=== PATIENT | female | born 1965 | race Caucasian/White ===

== ENCOUNTER → 2017-07-29 | Outpatient (CLI) | payer BC ==
[2017-07-29 12:38] LABS: REASON FOR REVIEW WBC/LEUKEMIA/BLAST; SLIDE REVIEW Report; SOURCE PERIPHERAL SMEAR
[2017-07-29 12:50] LABS: HEPATITIS B SURFACE ANTIBODY NEGATIVE (POSITIVE); VITAMIN B12 LEVEL 335 PG/ML (247-911)
[2017-07-29 12:58] LABS: FERRITIN 60 NG/ML (8-252); IRON (FE) 86 UG/DL (50-170); PERCENT SATURATION 20.1 % (13.2-45.0); TOTAL IRON BINDING CAPACITY 427 UG/DL (250-450); TOTAL PROTEIN 7.4 GM/DL (6.4-8.2)
[2017-07-29 13:00] LABS: HEPATITIS B SURFACE ANTIGEN NEGATIVE (NEGATIVE)
[2017-07-29 13:18] LABS: ERYTHROCYTE SEDIMENTATION RATE 8 mm/hr (0-30)
[2017-07-30 11:13] LABS: ALBUMIN 4.57 GM/DL (3.29-5.55); ALBUMIN % 61.7 % (55.8-66.1); ALPHA-1-GLOBULIN % 3.8 % (2.9-4.9); ALPHA-1-GLOBULINS 0.28 GM/DL (0.17-0.41); ALPHA-2-GLOBULINS 0.81 GM/DL (0.42-0.99); ALPHA-2-GLOBULINS % 10.9 % (7.1-11.8); BETA-1-GLOBULINS % 6.8 % (4.7-7.2); BETA-2-GLOBULINS % 4.9 % (3.2-6.5); GAMMA GLOBULIN % 11.9 % (11.1-18.8)
[2017-07-30 11:14] LABS: BETA-2-GLOBULINS 0.36 GM/DL (0.19-0.55); GAMMA GLOBULINS 0.88 GM/DL (0.65-1.58)
[2017-07-31 00:06] LABS: FREE KAPPA LIGHT CHAINS SERUM 16.9 mg/L (3.3-19.4); FREE LAMBDA LIGHT CHAINS SERUM 9.9 mg/L (5.7-26.3); KAPPA/LAMBDA RATIO SERUM 1.71 (0.26-1.65)
== END ==
LOC: M RAD 07:22
DX: D64.9 Anemia, unspecified (principal); D72.819 Decreased white blood cell count, unspecified; K80.00 Calculus of gallbladder with acute cholecystitis without obstruction; R16.1 Splenomegaly, not elsewhere classified
CPT/HCPCS: 76700

== ENCOUNTER 2017-08-09 07:01 | Day surgery (SDC) | payer BC ==
[2017-08-09] MEDS ORDERED: LIDOCAINE 2% INJ 100 MG/5 ML SDV (FOR ANES.) As Ordered (07:03)
[2017-08-09] MEDS ORDERED: PROPOFOL 200 MG/20 ML VIAL As Ordered ×2 (07:03)
[2017-08-09] MEDS ORDERED: fentaNYL 100 MCG/2 ML INJECTION (J3010) As Ordered (07:34)
[2017-08-09] MEDS: NS 1,000 ML IV (07:45)
[2017-08-09] MEDS ORDERED: hydrALAZINE INJ 20 MG/ML VIAL As Ordered ×2 (07:55)
== END 2017-08-09 08:53 | disposition home or self-care (01) ==
LOC: M OPP 07:01
DX: D50.9 Iron deficiency anemia, unspecified (principal); Z80.0 Family history of malignant neoplasm of digestive organs; D12.5 Benign neoplasm of sigmoid colon; K64.8 Other hemorrhoids; K22.8 Other specified diseases of esophagus; K21.0 Gastro-esophageal reflux disease with esophagitis; I89.0 Lymphedema, not elsewhere classified; Z98.84 Bariatric surgery status; R12 Heartburn; M19.90 Unspecified osteoarthritis, unspecified site; F32.9 Major depressive disorder, single episode, unspecified; Z78.0 Asymptomatic menopausal state; G47.30 Sleep apnea, unspecified; R06.83 Snoring; Z87.891 Personal history of nicotine dependence; Z79.899 Other long term (current) drug therapy; Z80.1 Family history of malignant neoplasm of trachea, bronchus and lung
CPT/HCPCS: 45385

== ENCOUNTER → 2020-05-23 | Outpatient (CLI) | payer BC ==
[~2020-05-23] MED LIST: AMOX875T2 PO; CITA20TA6 PO; LISI-538 PO; PROTPAK PO; VITA-243 PO; iron PO
--- NOTE | 2020-05-23 08:20 | REP ---
INDICATION: CHRONIC CHOLECYSTITIS. COMPARISON: Comparison sonography July 29, 2017.. TECHNIQUE: Coronal and axial T2 weighted scans are acquired. An MRCP acquisition is acquired and maximum intensity projection images are generated. Source coronal images are reviewed. FINDINGS: There are small somewhat nodular shaped filling defect in the dependent portion of the gallbladder consistent with cholelithiasis. No intrahepatic or extrahepatic biliary ductal dilation is seen. There is no evidence of choledocholithiasis. Pancreatic duct is not dilated. There is a moderate size hiatal hernia noted. No focal hepatic lesion or splenic lesion is appreciated. Study is otherwise unremarkable. IMPRESSION: Cholelithiasis. No evidence of choledocholithiasis or biliary or pancreatic ductal abnormality. <Electronically signed by Vincent Navarro > 05/23/20 [id number]
== END ==
LOC: M RAD 06:32
PROVIDERS: ATTEND Surgery
DX: K81.1 Chronic cholecystitis (principal)

== ENCOUNTER → 2020-08-10 | Outpatient (CLI) | payer BC ==
[~2020-08-10] MED LIST changes: +CHLO125TA PO; -LISI-538 PO; +LISI20TA33 PO; +SPIR-10 PO
== END ==
LOC: M LABSMTC 10:21
PROVIDERS: ATTEND Anesthesiology
DX: Z01.812 Encounter for preprocedural laboratory examination (principal); Z20.822 Contact with and (suspected) exposure to COVID-19

== ENCOUNTER 2020-08-15 11:44 | Day surgery (SDC) | payer BC ==
[~2020-08-15] VITALS: Ht 167.6 cm; Wt 102.5 kg
[~2020-08-15 11:44] MED LIST changes: +LIDOCAINE 2% 100MG/5ML SDV (FOR ANES.) As Ordered ONE; +NS 1,000 ML IV ONE; +fentaNYL 100 MCG/2 ML INJECTION (J3010) As Ordered ONE; +propofoL 200 MG/20 ML VIAL As Ordered ONE
--- OUTSIDE RECORDS SUMMARY | 2020-08-15 11:50 | CCD | Continuity of Care Document ---
Author Author Julissa CHINO M.D. Organization Unknown Address [facility] [address] [place] [address] Phone [phone] Care Team Providers Care Enterprise Sales Person Name Role Phone Serenity Morales AUTM [phone] Bandar Diaz AUTM [phone] Problems Active Problems Provider Date Essential hypertension Bandar Diaz MD Onset: 05/06/2020 Chronic cholecystitis Bandar Diaz MD Onset: 05/10/2020 Abdominal pain Bandar Diaz MD Onset: 05/10/2020 Social History Type Date Description Comments Sex Unknown Tobacco Use Start: Unknown End: Unknown Quit Tobacco Use Start: Unknown Never Smoked Cigars Tobacco Use Start: Unknown Never Smoked A Pipe Tobacco Use Start: Unknown Never Used Smokeless Tobacco ETOH Use Occasionally consumes alcohol Tobacco Use Start: Unknown End: Unknown Patient is a former smoker Recreational Drug Use Denies Drug Use Allergies, Adverse Reactions, Alerts Active Allergies Reaction Severity Comments Date NKDA 08/30/2019 NKFA 06/02/2020 NKEA 06/02/2020 Medications Active Medications SIG Qnty Indications Ordering Provide r Date Cytotec 200mcg Tablets 1 tabs intravaginally every 12 hours x 2days 4tabs Blaine Parikh M.D. 06/02/2020 Pantoprazole Sodium 40mg Tablets D R 1 by mouth every day 90tabs Elier Stahl MD 08/30/2019 Lisinopril 20mg Tablets 1 by mouth every day 30tabs Elier Stahl MD 08/30/2019 Spironolactone/Hydrochlorothiazide 25-25mg Tablets take 1/2 tablet by mouth daily written by dr hubbard 45tabs Elier Stahl MD 08/30/2019 Citalopram Hydrobromide 20mg Table ts Take 2 Tablets (40MG) By Mouth Once Daily Unknown Immunizations Description No Information Available Vital Signs Date Vital Result Comment 06/15/2020 8:12am BP Systolic 133 mmHg BP Diastolic 77 mmHg Heart Rate 47 /min Body Temperature 97.3 F Respiratory Rate 19 /min O2 % BldC Oximetry 99 % Weight 226.00 lb Weight 102.514 kg Height 66 inches 5'6" BMI (Body Mass Index) 36.5 kg/m2 BSA (Body Surface Area) 2.11 m2 06/02/2020 3:04pm BP Systolic 117 mmHg BP Diastolic 65 mmHg Heart Rate 50 /min Body Temperature 97.3 F Weight 228.00 lb Weight 103.421 kg Height 66 inches 5'6" BMI (Body Mass Index) 36.8 kg/m2 BSA (Body Surface Area) 2.11 m2 Results Test Acquired Date Facility Test Result H/L Range Note Inhouse Ua 06/15/2020 In Office [facility] Color yellow Ua Appearance clear Spec [place] 1.010 Ua PH Test Strip 5 Leukocytes + Ua Nitrate neg Ua Protein trace Inhouse Glucose neg Ua Ketones neg Urobilinogen neg Ua Bilirubin neg Blood neg Xray 06/15/2020 [facility] [phone] US Renal/Urinary Bladder <pending> Xray 05/18/2020 [facility] [address] [place] [address] [phone] Pelvic <pending> Procedures Description No Information Available Medical Devices Description No Information Available Encounters Type Date Location Provider Dx Diagnosis Office Visit 06/15/2020 8:15a [facility] Dayron Chino M.D. N81.10 Cystocele, unspecified N32.89 Other specified disorders of bladder R35.0 Frequency of micturition R32 Unspecified urinary incontin ence I49.9 Cardiac arrhythmia, unspecif ied Assessments Date Code Description Provider 06/15/2020 N81.10 Cystocele, unspecified Dayron Chino M.D. 06/15/2020 N32.89 Other specified disorders of fredy dder Dayron Chino M.D. 06/15/2020 R35.0 Frequency of micturition aDyron Chino M.D. 06/15/2020 R32 Unspecified urinary incontinence Dayron Chino M.D. 06/15/2020 I49.9 Cardiac arrhythmia, unspecified Dayron Chino M.D. 06/02/2020 Z71.9 Counseling, unspecified [place] Barbara Parikh M.D. 05/10/2020 K81.1 Chronic cholecystitis Bandar valle MD 05/10/2020 R10.30 Lower abdominal pain, unspecifie d Bandar Diaz MD Plan of Treatment 06/15/2020 - Dayron Chino M.D.* N81.10 Cystocele, unspecified* Comments:* Patient presents to the clinic today for evaluation and management of thickening of bladder wall and abnormal CT scan.Physical examination done in the office revealed obese female with irregular heartbeat and grade III cystocele, otherwise unremarkable from a standpoint. Urinalysis completed in the office was positive for leukocyte esterase + and trace protein. Result was reviewed with the patient. CT of the abdomen and pelvis on 05/02/20 revealed cholelithiasis, mild common bile duct dilatation, 2.1-cm uterine fibroid likely an ovarian cyst. Circumferential thickening of the bladder wall may be due to under distention or cystitis in the appropriate clinical setting. Result was reviewed with the patient. Anatomy and functions of female genitourinary system were reviewed with the patient.Pathophysiology of bladder wall thickening was reviewed with the patient at length.Various treatment modalities and workup methods including renal and urinary bladder ultrasound, cystoscopy, and cystocele repair were discussed with the patient at length.Patient was advised to follow up with his primary care physician for irregular heartbeat.In terms of grade III cystocele, we discussed the pros and cons of cystocele repair and elective cystocele repair procedure. Pre and post procedure guidelines were explained to the patient. We will do renal and urinary bladder ultrasound to evaluate bilateral kidneys. Patient verbalized understanding and agreed to the care plan. All of her questions were answered. Patient verbalized understanding and agreed to the care plan. All of her questions were answered. Patient will call us in a few days after considering each of her options to let us know what she has decided. * N32.89 Other specified disorders of bladder* Comments:* In terms of bladder wall thickening, we are going to get renal and urinary bladder ultrasound for further review. If bladder wall thickening is persistent, we will consider cystoscopy to fully evaluate the lower urinary tract and rule out any urethral and/or bladder pathology. * R35.0 Frequency of micturition * R32 Unspecified urinary incontinence * I49.9 Cardiac arrhythmia, unspecified Functional Status Description No Information Available Mental Status Description No Information Available Referrals Refer to Reason for Referral Status Appt Date Bandar Diaz MD Abnormal CT Scan, Thickening of Bladderwall C reated [address] [place] [id number] [phone] Bandar Diaz MD Abnormal Ct scan 5cm cyst 2 cm Fibroid Create d [address] [place] [phone]
--- OUTSIDE RECORDS SUMMARY | 2020-08-15 11:50 | CCD | Continuity of Care Document ---
Author Author Julissa ARREODNDO M.D. Organization Unknown Address [address] [place] [address] Phone [phone] Care Team Providers Care Consumer Education Specialist Name Role Phone Serenity Morales AUTM [phone] Bandar Diaz AUTM [phone] Problems Active Problems Provider Date Essential hypertension [...] SIG Qnty Indications Ordering Provide r Date Pantoprazole Sodium 40mg Tablets D R 1 by mouth every day 90tabs Elier Stahl MD 08/30/2019 Lisinopril 20mg Tablets 1 by mouth every day 30tabs Elier Stahl MD 08/30/2019 Spironolactone/Hydrochlorothiazide 25-25mg Tablets take 1/2 tablet by mouth daily written by dr hubbard 45tabs Elier Stahl MD 08/30/2019 Citalopram Hydrobromide 20mg Table ts Take 2 Tablets (40MG) By Mouth Once Daily Unknown History Medications Cytotec 200mcg Tablets 1 tabs intravaginally every 12 hours x 2days 4tabs Blaine Arredondo M.D. 06/02/2020 - 08/04/2020 Immunizations Description No Information Available Vital Signs Date Vital Result Comment 08/04/2020 2:20pm BP Systolic 139 mmHg BP Diastolic 71 mmHg Heart Rate 51 /min Body Temperature 97.8 F Weight 222.00 lb Weight 100.699 kg Height 66 inches 5'6" BMI (Body Mass Index) 35.8 kg/m2 BSA (Body Surface Area) 2.09 m2 06/15/2020 8:12am BP Systolic 133 mmHg BP Diastolic 77 mmHg Heart Rate 47 /min Body Temperature 97.3 F Respiratory Rate 19 /min O2 % BldC Oximetry 99 % Weight 226.00 lb Weight 102.514 kg Height 66 inches 5'6" BMI (Body Mass Index) 36.5 kg/m2 BSA (Body Surface Area) 2.11 m2 Results Test Acquired Date Facility Test Result H/L Range Note Laboratory test finding 08/04/2020 In Office Inhouse Urine Test NEGATIVE Negative Inhouse Ua 06/15/2020 In Office Ua Color yellow Ua Appearance clear Spec [place] 1.010 Ua PH Test Strip 5 Leukocytes + Ua Nitrate neg Ua Protein trace Inhouse Glucose neg Ua Ketones neg Urobilinogen neg Ua Bilirubin neg Blood neg Xray 05/18/2020 [facility] [place] [id number] [phone] Pelvic <pending> Procedures Date Code Description Status 08/04/2020 69029 Biopsy Endometrial W/O Cervical Dilation Completed Medical Devices Description No Information Available Encounters Description No Information Available Assessments Date Code Description Provider 08/04/2020 N85.00 Endometrial hyperplasia, unspeci fied Blaine Arredondo M.D. 06/15/2020 N81.10 Cystocele, unspecified Dayron Chino M.D. 06/15/2020 N32.89 Other specified disorders of fredy dder Dayron Chino M.D. 06/15/2020 R35.0 Frequency of micturition Dayron Chino M.D. 06/15/2020 R32 Unspecified urinary incontinence Dayron Chino M.D. 06/15/2020 I49.9 Cardiac arrhythmia, unspecified Dayron Chino M.D. 06/02/2020 Z71.9 Counseling, unspecified Blaine Arredondo M.D. 05/10/2020 K81.1 Chronic cholecystitis Bandar valle MD 05/10/2020 R10.30 Lower abdominal pain, unspecifie d Bandar Diaz MD Plan of Treatment Future Appointment(s):* 08/19/2020 3:00 pm - Blaine Arredondo M.D. at [facility] * 01/10/2021 10:15 am - Urology Resource Schedule at [facility] 08/04/2020 - Blaine Arredondo M.D.* N85.00 Endometrial hyperplasia, unspecified * All * Comments:* CA125 is ordered due to left ovarian complex cyst measuring approximately 4 cm which was diagnosed in 2015 and scan done in 2019 showed persistent cyst. * Follow up:* Follow up in 2 weeks. Functional Status Description No Information Available Mental Status Description No Information Available Referrals Refer to Dr Reason for Referral Status Appt Date Bandar Diaz MD Abnormal CT Scan, Thickening of Bladderwall C reated [address] [place] [phone] Bandar Diaz MD Abnormal Ct scan 5cm cyst 2 cm [place]roid Create d [address] [place] [phone]
--- OUTSIDE RECORDS SUMMARY | 2020-08-15 11:50 | CCD | Continuity of Care Document ---
Author Author Julissa JAMES Organization Unknown Address [address] [place] [address], [address] [place] [address] Phone [phone] Care Team Providers Care Senior Quality Engineer Name Role Phone Serenity Morales Tyler AUTM [phone] Problems Active Problems Provider Date Essential hypertension Fely Meg RICHARD James Onset: Social History Type Date Description Comments Sex Unknown ETOH Use 6 A Week Tobacco Use Start: Unknown Non Smoker Allergies, Adverse Reactions, Alerts Description No Known Drug Allergies Medications Active Medications SIG Qnty Indications Ordering Provide r Date Clenpiq 10-3.5-12mg-GM -GM/160ML S olution take as directed per doctor's bowel prep instructions. 320ml Z12.1 1 Bandar Herrera MD 06/08/2020 Milk Of Magnesia 1200mg/15ML Suspe nsion take 45 milliliters by mouth as directed on colonoscopy prep sheet. Z12.11 Bandar Herrera MD 06/08/[address] 1 by mouth every day 90tabs Bandar Herrera MD 08/20/2017 Citalopram Hydrobromide 40mg Table ts daily Unknown Chlorthalidone 25mg Tablets 1/2 tab M-W-F Unknown Spironolactone 25mg Tablets 1/2 by mouth every day Unknown Lisinopril 20mg Tablets Daily Unknown Immunizations Description No Information Available Vital Signs Date Vital Result Comment 06/08/2020 2:51pm BP Systolic 124 mmHg BP Diastolic 68 mmHg Height 66 inches 5'6" Weight 225.00 lb BMI (Body Mass Index) 36.3 kg/m2 [employer] Body Weight 130 lb Weight 102.060 kg BSA (Body Surface Area) 2.10 m2 06/22/2019 8:17am BP Systolic 112 mmHg BP Diastolic 68 mmHg Height 66 inches 5'6" Weight 232.00 lb BMI (Body Mass Index) 37.4 kg/m2 [employer] Body Weight 130 lb Weight 105.235 kg BSA (Body Surface Area) 2.13 m2 Results Description No Information Available Procedures Description No Information Available Medical Devices Description No Information Available Encounters Description No Information Available Assessments Date Code Description Provider 06/08/2020 K21.00 Gastro-esophageal re flux disease with esophagitis, without bleeding RICHARD Ignacio 06/08/2020 Z12.11 Encounter for screening for gisel gnant neoplasm of colon RICHARD Ignacio 06/08/2020 Z86.010 Personal history of colonic poly ps RICHARD Ignacio 06/08/2020 Z80.0 Family history of malignant neop lasm of digestive organs RICHARD Ignacio Plan of Treatment 06/08/2020 - RICHARD Ignacio* K21.00 Gastro-esophageal reflux disease with esophagitis, without bleeding * Z12.11 Encounter for screening for malignant neoplasm of colon * Z86.010 Personal history of colonic polyps * Z80.0 Family history of malignant neoplasm of digestive organs * * New Orders:* Endoscopy, Ordered: 06/08/20 * Comments:* Will arrange for upper endoscopy and colonoscopy. Reviewed risks and benefits of the procedures, as well as other options, with the patient. Prep for this procedure was discussed with patient, including risks and side effects associated with the prep. Patient verbalized understanding of all of the above and is in agreement to proceed. Patient will seek medical attention for any acute changes. Will monitor. * Follow up:* As scheduled, sooner if needed. Functional Status Description No Information Available Mental Status Description No Information Available Referrals Description No Information Available
--- OUTSIDE RECORDS SUMMARY | 2020-08-15 11:50 | CCD | Continuity of Care Document ---
Author Author Urology Resource Schedule, Vamshi braswell Organization Unknown Address [address] [place] [address] Phone [phone] Care Team Providers Care Commissary Representative Name Role Phone Serenity Morales AUTM [phone] Bandar Diaz AUTM [phone] Problems Active Problems Provider Date Essential hypertension [...] Ua Color yellow Ua Appearance clear Spec [place] 1.010 Ua PH Test Strip 5 Leukocytes + Ua Nitrate neg Ua Protein trace Inhouse Glucose neg Ua Ketones neg Urobilinogen neg Ua Bilirubin neg Blood neg Xray 05/18/2020 [facility] [address] [place] [address] [phone] Pelvic <pending> Procedures Description No Information Available Medical Devices Description No Information Available Encounters Description No Information Available Assessments Date Code Description Provider 06/15/2020 N32.89 Other specified disorders of fredy dder Dayron Chino M.D. 06/15/2020 R35.0 Frequency of micturition Dayron Chino M.D. 06/15/2020 R32 Unspecified urinary incontinence Dayron Chino M.D. 06/02/2020 Z71.9 Counseling, unspecified Blaine Barbara Parikh M.D. 05/10/2020 K81.1 Chronic cholecystitis Bandar valle MD 05/10/2020 R10.30 Lower abdominal pain, unspecifie d Bandar Diaz MD Plan of Treatment No Information Available Functional Status Description No Information Available Mental Status Description No Information Available Referrals Refer to Dr Reason for Referral Status Appt Date Bandar iDaz MD Abnormal CT Scan, Thickening of Bladderwall C reated [address] [place] [address] [phone] Bandar Diaz MD Abnormal Ct scan 5cm cyst 2 cm Fibroid Create d [address] [place] [address] [phone]
--- OUTSIDE RECORDS SUMMARY | 2020-08-15 11:51 | CCD ---
Author Author [facility] Organization [facility] Address Unknown Phone Unavailable Care Team Providers Care Corner Former Name Role Phone Meliza PEARSON MD Unavailable Unavailable Meliza PEARSON MD Unavailable Unavailable Meliza PEARSON MD Unavailable Unavailable Meliza PEARSON MD Unavailable Unavailable Meliza PEASRON MD Unavailable Unavailable Meliza PEARSON MD Unavailable Unavailable Meliza PEARSON MD Unavailable Unavailable Meliza PEARSON MD Unavailable Unavailable Meliza PEARSON MD Unavailable Unavailable Meliza PEARSON MD Unavailable Unavailable OBEN, T DAYRON MD Unavailable Unavailable OBEN, T DAYRON MD Unavailable Unavailable OBEN, T DAYRON MD Unavailable Unavailable OBEN, T DAYRON MD Unavailable Unavailable OBEN, T DAYRON MD Unavailable Unavailable OBEN, T DAYRON MD Unavailable Unavailable OBEN, T DAYRON MD Unavailable Unavailable OBEN, T DAYRON MD Unavailable Unavailable OBEN, T DAYRON MD Unavailable Unavailable OBEN, T DAYRON MD Unavailable Unavailable OBEN, T DAYRON MD Unavailable Unavailable OBEN, T DAYRON MD Unavailable Unavailable OBEN, T DAYRON MD Unavailable Unavailable OBEN, T DAYRON MD Unavailable Unavailable OBEN, T DAYRON MD Unavailable Unavailable OBEN, T DAYRON MD Unavailable Unavailable OBEN, T DAYRON MD Unavailable Unavailable OBEN, T DAYRON MD Unavailable Unavailable OBEN, T DAYRON MD Unavailable Unavailable OBEN, T DAYRON MD Unavailable Unavailable OBEN, T DAYRON MD Unavailable Unavailable OBEN, T DAYRON MD Unavailable Unavailable OBEN, T DAYRON MD Unavailable Unavailable OBEN, T DAYRON MD Unavailable Unavailable OBEN, T DAYRON MD Unavailable Unavailable OBEN, T DAYRON MD Unavailable Unavailable OBEN, T DAYRON MD Unavailable Unavailable OBEN, T DAYRON MD Unavailable Unavailable OBEN, T DAYRON MD Unavailable Unavailable OBEN, T DAYRON MD Unavailable Unavailable OBEN, T DAYRON MD Unavailable Unavailable OBEN, T DAYRON MD Unavailable Unavailable OBEN, T DAYRON MD Unavailable Unavailable OBEN, T DAYRON MD Unavailable Unavailable OBEN, T DAYRON MD Unavailable Unavailable OBEN, T DAYRON MD Unavailable Unavailable OBEN, T DAYRON MD Unavailable Unavailable OBEN, T DAYRON MD Unavailable Unavailable OBEN, T DAYRON MD Unavailable Unavailable OBEN, T DAYRON MD Unavailable Unavailable OBEN, T DAYRON MD Unavailable Unavailable OBEN, T DAYRON MD Unavailable Unavailable OBEN, T DAYRON MD Unavailable Unavailable GUTIERREZHILARIA JAVIERIC PA Unavailable Unavailable GUTIERREZ, HILARIA WHELANIC PA Unavailable Unavailable GUTIERREZ, HILARIA ZACHERY PA Unavailable Unavailable GUTIERREZHILARIA JAVIERIC PA Unavailable Unavailable GUTIERREZ, HILARIA ZACHERY PA Unavailable Unavailable GUTIERREZ, HILARIA ZACHERY PA Unavailable Unavailable GUTIERREZ, HILARIA ZACHERY PA Unavailable Unavailable GUTIERREZ, HILARIA ZACHERY PA Unavailable Unavailable GUTIERREZ, HILARIA ZACHERY PA Unavailable Unavailable GUTIERREZ, HILARIA ZACHERY PA Unavailable Unavailable GUTIERREZ, HILARIA ZACHERY PA Unavailable Unavailable GUTIERREZ, HILARIA ZACHERY PA Unavailable Unavailable GUTIERREZ, HILARIA ZACHERY PA Unavailable Unavailable GUTIERREZ, HLIARIA ZACHERY PA Unavailable Unavailable GUTIERREZ, HILARIA ZACHERY PA Unavailable Unavailable GUTIERREZ, HILARIA ZACHERY PA Unavailable Unavailable GUTIERREZ, HILARIA ZACHERY PA Unavailable Unavailable GUTIERREZ, HILARIA ZACHERY PA Unavailable Unavailable GUTIERREZ, HILARIA ZACHERY PA Unavailable Unavailable GUTIERREZ, HILARIA ZACHERY PA Unavailable Unavailable GUTIERREZ, HILARIA ZACHERY PA Unavailable Unavailable Donal, Gabriel Pina MD Unavailable Unavailable Donal, Gabriel Pina MD Unavailable Unavailable Donal, Gabriel Pina MD Unavailable Unavailable Donal, Gabriel Pina MD Unavailable Unavailable Donal, Gabriel Pina MD Unavailable Unavailable Donal, Gabriel Pina MD Unavailable Unavailable Donal, Gabriel Pina MD Unavailable Unavailable Donal, Gabriel Pina MD Unavailable Unavailable Donal, Gabriel Pina MD Unavailable Unavailable Donal, Gabriel Pina MD Unavailable Unavailable Donal, Gabriel Pina MD Unavailable Unavailable Donal, Gabriel Pina MD Unavailable Unavailable Donal, Gabriel Pina MD Unavailable Unavailable Donal, Gabriel Pina MD Unavailable Unavailable Donal, Gabriel Pina MD Unavailable Unavailable Donal, Gabriel Pina MD Unavailable Unavailable Donal, Gabriel Pina MD Unavailable Unavailable Donal, Gabriel Pina MD Unavailable Unavailable Donal, Gabriel Pina MD Unavailable Unavailable Donal, Gabriel Pina MD Unavailable Unavailable Donal, Gabriel Pina MD Unavailable Unavailable Donal, Gabriel Pina MD Unavailable Unavailable Donal, Gabriel Pina MD Unavailable Unavailable Donal, Gabriel Pina MD Unavailable Unavailable Donal, Gabriel Pina MD Unavailable Unavailable Donal, Gabriel Pina MD Unavailable Unavailable Donal, Gabriel Pina MD Unavailable Unavailable Donal, Gabriel Pina MD Unavailable Unavailable Donal, Gabriel Pina MD Unavailable Unavailable Donal, Gabriel Pina MD Unavailable Unavailable Donal, Gabriel Pina MD Unavailable Unavailable Donal, Gabriel Pina MD Unavailable Unavailable Donal, Gabriel Pina MD Unavailable Unavailable Donal, Gabriel Pina MD Unavailable Unavailable Donal, Gabriel Pina MD Unavailable Unavailable Donal, Gabriel Pina MD Unavailable Unavailable Donal, Gabriel Pina MD Unavailable Unavailable Donal, Gabriel Pina MD Unavailable Unavailable Donal, Gabriel Pina MD Unavailable Unavailable Donal, Gabriel Pina MD Unavailable Unavailable Donal, Gabriel Pina MD Unavailable Unavailable Donal, Gabriel Pina MD Unavailable Unavailable Donal, Gabriel Pina MD Unavailable Unavailable Donal, Gabriel Pina MD Unavailable Unavailable Donal, Gabriel Pina MD Unavailable Unavailable Donal, Gabriel Pina MD Unavailable Unavailable Donal, Gabriel Pina MD Unavailable Unavailable Donal, Gabriel Pina MD Unavailable Unavailable Donal, Gabriel Pina MD Unavailable Unavailable Donal, Gabriel Pina MD Unavailable Unavailable Donal, Gabriel Pina MD Unavailable Unavailable Donal, Gabriel Pina MD Unavailable Unavailable Donal, Gabriel Pina MD Unavailable Unavailable Donal, Gabriel Pina MD Unavailable Unavailable Donal, Gabriel Pina MD Unavailable Unavailable Donal, Gabriel Pina MD Unavailable Unavailable Donal, Gabriel Pina MD Unavailable Unavailable Donal, Gabriel Pina MD Unavailable Unavailable Donal, Gabriel Pina MD Unavailable Unavailable Donal, Gabriel Pina MD Unavailable Unavailable Donal, Gabriel Pina MD Unavailable Unavailable Donal, Gabriel Pina MD Unavailable Unavailable Donal, Gabriel Pina MD Unavailable Unavailable Donal, Gabriel Pina MD Unavailable Unavailable Donal, Gabriel Pina MD Unavailable Unavailable Donal, Gabriel Pina MD Unavailable Unavailable Donal, Gabriel Pina MD Unavailable Unavailable Donal, Gabriel Pnia MD Unavailable Unavailable Donal, Gabriel Pina MD Unavailable Unavailable Donal, Gabriel Pina MD Unavailable Unavailable Donal, Gabriel Pina MD Unavailable Unavailable Donal, Gabriel Pina MD Unavailable Unavailable Donal, Gabriel Pina MD Unavailable Unavailable Donal, Gabriel Pina MD Unavailable Unavailable Barbara ARREDONDO MD Unavailable Unavailable Barbara ARREDONDO MD Unavailable Unavailable Barbara ARREDONDO MD Unavailable Unavailable Barbara ARREDONDO MD Unavailable Unavailable Barbara ARREDONDO MD Unavailable Unavailable Barbara ARREDONDO MD Unavailable Unavailable Barbara ARREDONDO MD Unavailable Unavailable Barbara ARREDONDO MD Unavailable Unavailable Barbara ARREDONDO MD Unavailable Unavailable Barbara ARREDONDO MD Unavailable Unavailable Barbara ARREDONDO MD Unavailable Unavailable Barbara ARREDONDO MD Unavailable Unavailable Barbara ARREDONDO MD Unavailable Unavailable Barbara ARREDONDO MD Unavailable Unavailable ARNULFOBarbara Weaver MD Unavailable Unavailable ARNULFO, F MONI MD Unavailable Unavailable ARNULFO, F MONI MD Unavailable Unavailable ARNULFO, F MONI MD Unavailable Unavailable ARNULFO, F MONI MD Unavailable Unavailable ARNULFO, F MONI MD Unavailable Unavailable ARNULFO, F MONI MD Unavailable Unavailable ARNULFO, F MONI MD Unavailable Unavailable ARNULFO, F MONI MD Unavailable Unavailable ARNULFO, F MONI MD Unavailable Unavailable ARNULFO, F MONI MD Unavailable Unavailable ARNULFO, F MONI MD Unavailable Unavailable ARNULFO, F MONI MD Unavailable Unavailable ARNULFO, F MONI MD Unavailable Unavailable Linn, Mashaal MD Unavailable Unavailable Linn, Mashaal MD Unavailable Unavailable Linn, Mashaal MD Unavailable Unavailable Linn, Mashaal MD Unavailable Unavailable Linn, Mashaal MD Unavailable Unavailable Linn, Mashaal MD Unavailable Unavailable Linn, Mashaal MD Unavailable Unavailable Linn, Mashaal MD Unavailable Unavailable Linn, Mashaal MD Unavailable Unavailable Linn, Mashaal MD Unavailable Unavailable Linn, Mashaal MD Unavailable Unavailable Linn, Mashaal MD Unavailable Unavailable Linn, Mashaal MD Unavailable Unavailable Linn, Mashaal MD Unavailable Unavailable Linn, Mashaal MD Unavailable Unavailable Linn, Mashaal MD Unavailable Unavailable Linn, Mashaal MD Unavailable Unavailable Linn, Mashaal MD Unavailable Unavailable Linn, Mashaal MD Unavailable Unavailable Linn, Mashaal MD Unavailable Unavailable Linn, Mashaal MD Unavailable Unavailable Linn, Mashaal MD Unavailable Unavailable Linn, Mashaal MD Unavailable Unavailable Linn, Mashaal MD Unavailable Unavailable Linn, Mashaal MD Unavailable Unavailable Linn, Mashaal MD Unavailable Unavailable Linn, Mashaal MD Unavailable Unavailable Linn, Mashaal MD Unavailable Unavailable Linn, Mashaal MD Unavailable Unavailable Linn, Mashaal MD Unavailable Unavailable Linn, Mashaal MD Unavailable Unavailable Linn, Mashaal MD Unavailable Unavailable Linn, Mashaal MD Unavailable Unavailable Linn, Mashaal MD Unavailable Unavailable Linn, Mashaal MD Unavailable Unavailable Linn, Mashaal MD Unavailable Unavailable Linn, Mashaal MD Unavailable Unavailable Linn, Mashaal MD Unavailable Unavailable Linn, Mashaal MD Unavailable Unavailable Linn, Mashaal MD Unavailable Unavailable Linn, Mashaal MD Unavailable Unavailable Linn, Mashaal MD Unavailable Unavailable Linn, Mashaal MD Unavailable Unavailable Linn, Mashaal MD Unavailable Unavailable Linn, Mashaal MD Unavailable Unavailable Linn, Mashaal MD Unavailable Unavailable Linn, Mashaal MD Unavailable Unavailable Linn, Mashaal MD Unavailable Unavailable Linn, Mashaal MD Unavailable Unavailable Linn, Mashaal MD Unavailable Unavailable Linn, Mashaal MD Unavailable Unavailable Linn, Mashaal MD Unavailable Unavailable Linn, Mashaal MD Unavailable Unavailable Linn, Mashaal MD Unavailable Unavailable Linn, Mashaal MD Unavailable Unavailable OBEN, T DAYRON MD Unavailable Unavailable OBEN, T DAYRON MD Unavailable Unavailable OBEN, T DAYRON MD Unavailable Unavailable OBEN, T DAYRON MD Unavailable Unavailable OBEN, T DAYRON MD Unavailable Unavailable OBEN, T DAYRON MD Unavailable Unavailable OBEN, T DAYRON MD Unavailable Unavailable OBEN, T DAYRON MD Unavailable Unavailable OBEN, T DAYRON MD Unavailable Unavailable OBEN, T DAYRON MD Unavailable Unavailable OBEN, T DAYRON MD Unavailable Unavailable OBEN, T DAYRON MD Unavailable Unavailable OBEN, T DAYRON MD Unavailable Unavailable OBEN, T DAYRON MD Unavailable Unavailable OBEN, T DAYRON MD Unavailable Unavailable OBEN, T DAYRON MD Unavailable Unavailable OBEN, T DAYRON MD Unavailable Unavailable OBEN, T DAYRON MD Unavailable Unavailable OBEN, T DAYRON MD Unavailable Unavailable OBEN, T DAYRON MD Unavailable Unavailable OBEN, T DAYRON MD Unavailable Unavailable OBEN, T DAYRON MD Unavailable Unavailable OBEN, T DAYRON MD Unavailable Unavailable OBEN, T DAYRON MD Unavailable Unavailable OBEN, T DAYRON MD Unavailable Unavailable OBEN, T DAYRON MD Unavailable Unavailable OBEN, T DAYRON MD Unavailable Unavailable OBEN, T DAYRON MD Unavailable Unavailable OBEN, T DAYRON MD Unavailable Unavailable OBEN, T DAYRON MD Unavailable Unavailable OBEN, T DAYRON MD Unavailable Unavailable OBEN, T DAYRON MD Unavailable Unavailable OBEN, T DAYRON MD Unavailable Unavailable OBEN, T DAYRON MD Unavailable Unavailable OBEN, T DAYRON MD Unavailable Unavailable OBEN, T DAYRON MD Unavailable Unavailable OBEN, T DAYRON MD Unavailable Unavailable OBEN, T DAYRON MD Unavailable Unavailable OBEN, T DAYRON MD Unavailable Unavailable OBEN, T DAYRON MD Unavailable Unavailable OBEN, T DAYRON MD Unavailable Unavailable OBEN, T DAYRON SALGADO Unavailable Unavailable Meliza PEARSON MD Unavailable Unavailable Meliza PEARSON MD Unavailable Unavailable OBMeliza HARO MD Unavailable Unavailable Meliza PEARSON MD Unavailable Unavailable OBMeliza HARO MD Unavailable Unavailable Meliza PEARSON MD Unavailable Unavailable Meliza PEARSON MD Unavailable Unavailable Meliza PEARSON MD Unavailable Unavailable Meliza PEARSON MD Unavailable Unavailable OBMeliza HARO MD Unavailable Unavailable Meliza PEARSON MD Unavailable Unavailable Emily, Barbara Portillo MD Unavailable Unavailable Emily, Barbara Portillo MD Unavailable Unavailable Emily, Barbara Portillo MD Unavailable Unavailable Emily, Barbara Portillo MD Unavailable Unavailable Emily, Barbara Portillo MD Unavailable Unavailable Emily, Barbara Portillo MD Unavailable Unavailable Emily, Barbara Portillo MD Unavailable Unavailable Emily, Barbara Portillo MD Unavailable Unavailable Emily, Barbara Portillo MD Unavailable Unavailable Emily, Barbara Portillo MD Unavailable Unavailable Emily, Barbara Portillo MD Unavailable Unavailable Emily, Barbara Portillo MD Unavailable Unavailable Emily, Barbara Portillo MD Unavailable Unavailable Emily, Barbara Portillo MD Unavailable Unavailable Emily, Barbara Portillo MD Unavailable Unavailable Emily, Barbara Portillo MD Unavailable Unavailable EmilyBarbara florentino MD Unavailable Unavailable EmilyBarbara florentino MD Unavailable Unavailable EmilyBarbara florentino MD Unavailable Unavailable Barbara Diaz MD Unavailable Unavailable Barbara Diaz MD Unavailable Unavailable Barbara Diaz MD Unavailable Unavailable Emily, Barbara Portillo MD Unavailable Unavailable Emily, Barbara Portillo MD Unavailable Unavailable Emily, Barbara Portillo MD Unavailable Unavailable Emily, Barbara Portillo MD Unavailable Unavailable Emily, Barbara Portillo MD Unavailable Unavailable Barbara Diaz MD Unavailable Unavailable Barbara Diaz MD Unavailable Unavailable Barbara Diaz MD Unavailable Unavailable Barbara Diaz MD Unavailable Unavailable EmilyBarbara florentino MD Unavailable Unavailable EmilyBarbara florentino MD Unavailable Unavailable Emily, Barbara Portillo MD Unavailable Unavailable EmilyBarbara florentino MD Unavailable Unavailable Barbara Diaz MD Unavailable Unavailable Barbara Diaz MD Unavailable Unavailable Barbara Diaz MD Unavailable Unavailable Emily, Barbara Portillo MD Unavailable Unavailable Emily, Barbara Portillo MD Unavailable Unavailable Emily, Barbara Portillo MD Unavailable Unavailable Emily, Barbara Portillo MD Unavailable Unavailable Emily, Barbara Portillo MD Unavailable Unavailable Emily, Barbara Portillo MD Unavailable Unavailable Andrew, H Serenity TITLE CURATOR Unavailable Unavailable Andrew, H Serenity TITLE CURATOR Unavailable Unavailable Andrew, H Serenity TITLE CURATOR Unavailable Unavailable Andrew, H Serenity TITLE CURATOR Unavailable Unavailable Andrew, H Serenity TITLE CURATOR Unavailable Unavailable Andrew, H Serenity TITLE CURATOR Unavailable Unavailable Andrew, H Serenity TITLE CURATOR Unavailable Unavailable Andrew, H Serenity TITLE CURATOR Unavailable Unavailable Andrew, H Serenity TITLE CURATOR Unavailable Unavailable Andrew, H Serenity TITLE CURATOR Unavailable Unavailable Andrew, H Serenity TITLE CURATOR Unavailable Unavailable Andrew, H Serenity TITLE CURATOR Unavailable Unavailable Andrew, H Serenity TITLE CURATOR Unavailable Unavailable Andrew, H Serenity TITLE CURATOR Unavailable Unavailable Andrew, H Serenity TITLE CURATOR Unavailable Unavailable Andrew, H Serenity TITLE CURATOR Unavailable Unavailable Andrew, H Serenity TITLE CURATOR Unavailable Unavailable Andrew, H Serenity TITLE CURATOR Unavailable Unavailable Andrew, H Serenity TITLE CURATOR Unavailable Unavailable Andrew, H Serenity TITLE CURATOR Unavailable Unavailable Andrew, H Serenity TITLE CURATOR Unavailable Unavailable Andrew, H Serenity TITLE CURATOR Unavailable Unavailable Andrew, H Serenity TITLE CURATOR Unavailable Unavailable Andrew, H Serenity TITLE CURATOR Unavailable Unavailable Andrew, H Serenity TITLE CURATOR Unavailable Unavailable Andrew, H Serenity TITLE CURATOR Unavailable Unavailable Andrew, H Serenity TITLE CURATOR Unavailable Unavailable Andrew, H Serenity TITLE CURATOR Unavailable Unavailable Andrew, H Serenity TITLE CURATOR Unavailable Unavailable Andrew, H Serenity TITLE CURATOR Unavailable Unavailable Andrew, H Serenity TITLE CURATOR Unavailable Unavailable Andrew, H Serenity TITLE CURATOR Unavailable Unavailable Andrew, H Serenity TITLE CURATOR Unavailable Unavailable Andrew, H Serenity TITLE CURATOR Unavailable Unavailable Andrew, H Serenity TITLE CURATOR Unavailable Unavailable Andrew, H Serenity TITLE CURATOR Unavailable Unavailable Andrew, H Serenity TITLE CURATOR Unavailable Unavailable Andrew, H Serenity TITLE CURATOR Unavailable Unavailable Andrew, H Serenity TITLE CURATOR Unavailable Unavailable Andrew, H Serenity TITLE CURATOR Unavailable Unavailable Andrew, H Serenity TITLE CURATOR Unavailable Unavailable Andrew, H Serenity TITLE CURATOR Unavailable Unavailable Andrew, H Serenity TITLE CURATOR Unavailable Unavailable Andrew, H Serenity TITLE CURATOR Unavailable Unavailable Andrew, H Serenity TITLE CURATOR Unavailable Unavailable Andrew, H Serenity TITLE CURATOR Unavailable Unavailable Andrew, H Serenity TITLE CURATOR Unavailable Unavailable Andrew, H Serenity TITLE CURATOR Unavailable Unavailable Andrew, H Serenity TITLE CURATOR Unavailable Unavailable Andrew, H Serenity TITLE CURATOR Unavailable Unavailable Andrew, H Serenity TITLE CURATOR Unavailable Unavailable Andrew, H Serenity TITLE CURATOR Unavailable Unavailable Andrew, H Serenity TITLE CURATOR Unavailable Unavailable Andrew, H Serenity TITLE CURATOR Unavailable Unavailable Andrew, H Serenity TITLE CURATOR Unavailable Unavailable Andrew, H Serenity TITLE CURATOR Unavailable Unavailable Andrew, H Serenity TITLE CURATOR Unavailable Unavailable Jean Mota MD Unavailable Unavailable Jean Mota MD Unavailable Unavailable Jean Mota MD Unavailable Unavailable Jean Mota MD Unavailable Unavailable Jean Mota MD Unavailable Unavailable Jean Mota MD Unavailable Unavailable Jean Mota MD Unavailable Unavailable Jean Mota MD Unavailable Unavailable Jean Mota MD Unavailable Unavailable Jean Mota MD Unavailable Unavailable Greenky, S Leon MD Unavailable Unavailable Greenky, S Leon MD Unavailable Unavailable Greenky, S Leon MD Unavailable Unavailable Greenky, S Leon MD Unavailable Unavailable Greenky, S Leon MD Unavailable Unavailable Greenky, S Leon MD Unavailable Unavailable Greenky, S Leon MD Unavailable Unavailable Greenky, S Leon MD Unavailable Unavailable Greenky, S Leon MD Unavailable Unavailable Greenky, S Leon MD Unavailable Unavailable Greenky, S Leon MD Unavailable Unavailable Greenky, S Leon MD Unavailable Unavailable Greenky, S Leon MD Unavailable Unavailable Greenky, S Leon MD Unavailable Unavailable Greenky, S Leon MD Unavailable Unavailable Greenky, S Leon MD Unavailable Unavailable Greenky, S Leon MD Unavailable Unavailable Greenky, S Leon MD Unavailable Unavailable Greenky, S Leon MD Unavailable Unavailable Greenky, S Leon MD Unavailable Unavailable Greenky, S Leon MD Unavailable Unavailable Greenky, S Leon MD Unavailable Unavailable Greenky, S Leon MD Unavailable Unavailable Greenky, S Leon MD Unavailable Unavailable Greenky, S Leon MD Unavailable Unavailable Greenky, S Leon MD Unavailable Unavailable Greenky, S Leon MD Unavailable Unavailable Greenky, S Leon MD Unavailable Unavailable Greenky, S Leon MD Unavailable Unavailable Greenky, S Leon MD Unavailable Unavailable Greenky, S Leon MD Unavailable Unavailable Greenky, S Leon MD Unavailable Unavailable Greenky, S Leon MD Unavailable Unavailable Greenky, S Leon MD Unavailable Unavailable Greenky, S Leon MD Unavailable Unavailable Greenky, S Leon MD Unavailable Unavailable Greenky, S Leon MD Unavailable Unavailable Greenky, S Leon MD Unavailable Unavailable Greenky, S Leon MD Unavailable Unavailable Greenky, S Leon MD Unavailable Unavailable Greenky, S Leon MD Unavailable Unavailable Greenky, S Leon MD Unavailable Unavailable Greenky, S Leon MD Unavailable Unavailable Greenky, S Leon MD Unavailable Unavailable Greenky, S Leon MD Unavailable Unavailable Greenky, S Leon MD Unavailable Unavailable Greenky, S Leon MD Unavailable Unavailable Greenky, S Leon MD Unavailable Unavailable Greenky, S Leon MD Unavailable Unavailable Greenky, S Leon MD Unavailable Unavailable Greenky, S Leon MD Unavailable Unavailable Greenky, S Leon MD Unavailable Unavailable Greenky, S Leon MD Unavailable Unavailable Greenky, S Leon MD Unavailable Unavailable Greenky, S Leon MD Unavailable Unavailable Greenky, S Leon MD Unavailable Unavailable Greenky, S Leon MD Unavailable Unavailable Jean Moat MD Unavailable Unavailable Jean Mota MD Unavailable Unavailable Jean Mota MD Unavailable Unavailable Jean Mota MD Unavailable Unavailable Jean Mota MD Unavailable Unavailable Jean Mota MD Unavailable Unavailable Jean Mota MD Unavailable Unavailable Jean Mota MD Unavailable Unavailable Jean Mota MD Unavailable Unavailable Jean Mota MD Unavailable Unavailable Jean Mota MD Unavailable Unavailable Jean Mota MD Unavailable Unavailable Jean Mota MD Unavailable Unavailable Jean Mota MD Unavailable Unavailable Jean Mota MD Unavailable Unavailable Jean Mota MD Unavailable Unavailable Jean Mota MD Unavailable Unavailable Jean Mota MD Unavailable Unavailable Jean Mota MD Unavailable Unavailable Jean Mota MD Unavailable Unavailable Andrew, H Serenity TITLE CURATOR Unavailable Unavailable Andrew, H Serenity TITLE CURATOR Unavailable Unavailable Andrew, H Serenity TITLE CURATOR Unavailable Unavailable Andrew, H Serenity TITLE CURATOR Unavailable Unavailable Andrew, H Serenity TITLE CURATOR Unavailable Unavailable Andrew, H Serenity TITLE CURATOR Unavailable Unavailable Andrew, H Serenity TITLE CURATOR Unavailable Unavailable Andrew, H Serenity TITLE CURATOR Unavailable Unavailable Andrew, H Serenity TITLE CURATOR Unavailable Unavailable Andrew, H Serenity TITLE CURATOR Unavailable Unavailable Andrew, H Serenity TITLE CURATOR Unavailable Unavailable Andrew, H Serenity TITLE CURATOR Unavailable Unavailable Andrew, H Serenity TITLE CURATOR Unavailable Unavailable Andrew, H Serenity TITLE CURATOR Unavailable Unavailable Andrew, H Serenity TITLE CURATOR Unavailable Unavailable Andrew, H Serenity TITLE CURATOR Unavailable Unavailable Andrew, H Serenity TITLE CURATOR Unavailable Unavailable Andrew, H Serenity TITLE CURATOR Unavailable Unavailable Andrew, H Serenity TITLE CURATOR Unavailable Unavailable Andrew, H Serenity TITLE CURATOR Unavailable Unavailable Andrew, H Serenity TITLE CURATOR Unavailable Unavailable Andrew, H Serenity TITLE CURATOR Unavailable Unavailable Andrew, H Serenity TITLE CURATOR Unavailable Unavailable Andrew, H Serenity TITLE CURATOR Unavailable Unavailable Andrew, H Serenity TITLE CURATOR Unavailable Unavailable Andrew, H Serenity TITLE CURATOR Unavailable Unavailable Andrew, H Serenity TITLE CURATOR Unavailable Unavailable Andrew, H Serenity TITLE CURATOR Unavailable Unavailable Andrew, H Serenity TITLE CURATOR Unavailable Unavailable Andrew, H Serenity TITLE CURATOR Unavailable Unavailable Andrew, H Serenity TITLE CURATOR Unavailable Unavailable Andrew, H Serenity TITLE CURATOR Unavailable Unavailable Andrew, H Serenity TITLE CURATOR Unavailable Unavailable Andrew, H Serenity TITLE CURATOR Unavailable Unavailable Andrew, H Serenity TITLE CURATOR Unavailable Unavailable Andrew, H Serenity TITLE CURATOR Unavailable Unavailable Andrew, H Serenity TITLE CURATOR Unavailable Unavailable Andrew, H Serenity TITLE CURATOR Unavailable Unavailable Andrew, H Serenity TITLE CURATOR Unavailable Unavailable Andrew, H Serenity TITLE CURATOR Unavailable Unavailable Andrew, H Serenity TITLE CURATOR Unavailable Unavailable Andrew, H Serenity TITLE CURATOR Unavailable Unavailable Andrew, H Serenity TITLE CURATOR Unavailable Unavailable Andrew, H Serenity TITLE CURATOR Unavailable Unavailable Andrew, H Serenity TITLE CURATOR Unavailable Unavailable Andrew, H Serenity TITLE CURATOR Unavailable Unavailable Andrew, H Serenity TITLE CURATOR Unavailable Unavailable Andrew, H Serenity TITLE CURATOR Unavailable Unavailable Andrew, H Serenity TITLE CURATOR Unavailable Unavailable Andrew, H Serenity TITLE CURATOR Unavailable Unavailable Andrew, H Serenity TITLE CURATOR Unavailable Unavailable Andrew, H Serenity TITLE CURATOR Unavailable Unavailable Andrew, H Serenity TITLE CURATOR Unavailable Unavailable Andrew, H Serenity TITLE CURATOR Unavailable Unavailable Andrew, H Serenity TITLE CURATOR Unavailable Unavailable Andrew, H Serenity TITLE CURATOR Unavailable Unavailable Andrew, H Serenity TITLE CURATOR Unavailable Unavailable Donal, Gabriel Pina MD Unavailable Unavailable Donal, Gabriel Pina MD Unavailable Unavailable Donal, Gabriel Pina MD Unavailable Unavailable Donal, Gabriel Pina MD Unavailable Unavailable Donal, Gabriel Pina MD Unavailable Unavailable Donal, Gabriel Pina MD Unavailable Unavailable Donal, Gabriel Pina MD Unavailable Unavailable Donal, Gabriel Pina MD Unavailable Unavailable Donal, Gabriel Pina MD Unavailable Unavailable Donal, Gabriel Pina MD Unavailable Unavailable Donal, Gabriel Pina MD Unavailable Unavailable Donal, Gabriel Pina MD Unavailable Unavailable Donal, Gabriel Pina MD Unavailable Unavailable Donal, Gabriel Pina MD Unavailable Unavailable Donal, Gabriel Pina MD Unavailable Unavailable Donal, Gabriel Pina MD Unavailable Unavailable Donal, Gabriel Pina MD Unavailable Unavailable Donal, Gabriel Pina MD Unavailable Unavailable Donal, Gabriel Pina MD Unavailable Unavailable Donal, Gabriel Pina MD Unavailable Unavailable Donal, Gabriel Pina MD Unavailable Unavailable Donal, Gabriel Pina MD Unavailable Unavailable Donal, Gabriel Pina MD Unavailable Unavailable Donal, Gabriel Pina MD Unavailable Unavailable Donal, Gabriel Pina MD Unavailable Unavailable Donal, Gabriel Pina MD Unavailable Unavailable Donal, Gabriel Pina MD Unavailable Unavailable Donal, Gabriel Pina MD Unavailable Unavailable Donal, Gabriel Pina MD Unavailable Unavailable Donal, Gabriel Pina MD Unavailable Unavailable Donal, Gabriel Pina MD Unavailable Unavailable Donal, Gabriel Pina MD Unavailable Unavailable Donal, Gabriel Pina MD Unavailable Unavailable Donal, Gabriel Pina MD Unavailable Unavailable Donal, Gabriel Pina MD Unavailable Unavailable Donal, Gabriel Pina MD Unavailable Unavailable Donal, Gabriel Pina MD Unavailable Unavailable Donal, Gabriel Pina MD Unavailable Unavailable Donal, Gabriel Pina MD Unavailable Unavailable Donal, Gabriel Pina MD Unavailable Unavailable Donal, Gabriel Pina MD Unavailable Unavailable Donal, Gabriel Pina MD Unavailable Unavailable Donal, Gabriel Pina MD Unavailable Unavailable Donal, Gabriel Pina MD Unavailable Unavailable Donal, Gabriel Pina MD Unavailable Unavailable Donal, Gabriel Pina MD Unavailable Unavailable Donal, Gabriel Pina MD Unavailable Unavailable Donal, Gabriel Pina MD Unavailable Unavailable Donal, Gabriel Pina MD Unavailable Unavailable Donal, Gabriel Pina MD Unavailable Unavailable Donal, Gabriel Pina MD Unavailable Unavailable Donal, Gabriel Pina MD Unavailable Unavailable Donal, Gabriel Pina MD Unavailable Unavailable Donal, Gabriel Pina MD Unavailable Unavailable Donal, Gabriel Pina MD Unavailable Unavailable Donal, Gabriel Pina MD Unavailable Unavailable Donal, Gabriel Pina MD Unavailable Unavailable Donal, Gabriel Pina MD Unavailable Unavailable Donal, Gabriel Pina MD Unavailable Unavailable Donal, Gabriel Pina MD Unavailable Unavailable Donal, Gabriel Pina MD Unavailable Unavailable Donal, Gabriel Pina MD Unavailable Unavailable Donal, Gabriel Pina MD Unavailable Unavailable Donal, Gabriel Pina MD Unavailable Unavailable Donal, Gabriel Pina MD Unavailable Unavailable Donal, Gabriel Pina MD Unavailable Unavailable Donal, Gabriel Pina MD Unavailable Unavailable Donal, Gabriel Pina MD Unavailable Unavailable Donal, Gabriel Pina MD Unavailable Unavailable Donal, Gabriel Pina MD Unavailable Unavailable Donal, Gabriel Pina MD Unavailable Unavailable Donal, Gabriel Pina MD Unavailable Unavailable Donal, Gabriel Pina MD Unavailable Unavailable Donal, Gabriel Pina MD Unavailable Unavailable TAMIE MAYORGA MD Unavailable Unavailable TAMIE MAYORGA MD Unavailable Unavailable TAMIE MAYORGA MD Unavailable Unavailable TAMIE MAYORGA MD Unavailable Unavailable TAMIE MAYORGA MD Unavailable Unavailable TAMIE MAYORGA MD Unavailable Unavailable TAMIE MAYORGA MD Unavailable Unavailable TAMIE MAYORGA MD Unavailable Unavailable TAMIE MAYORGA MD Unavailable Unavailable TAMIE MAYORGA MD Unavailable Unavailable TAMIE MAYORGA MD Unavailable Unavailable TAMIE MAYORGA MD Unavailable Unavailable TAMIE MAYORGA MD Unavailable Unavailable TAMIE MAYORGA MD Unavailable Unavailable TAMIE MAYORGA MD Unavailable Unavailable TAMIE MAYORGA MD Unavailable Unavailable TAMIE MAYORGA MD Unavailable Unavailable TAMIE MAYORGA MD Unavailable Unavailable TAMIE MAYORGA MD Unavailable Unavailable KARINA, TAMIE SALGADO Unavailable Unavailable KARINA, TAMIE SALGADO Unavailable Unavailable KARINA, TAMIE SALGADO Unavailable Unavailable KARINA, TAMIE SALGADO Unavailable Unavailable KARINA, TAMIE SALGADO Unavailable Unavailable KARINA, TAMIE SALGADO Unavailable Unavailable KARINA, TAMIE SALGADO Unavailable Unavailable KARINA, TAMIE SALGADO Unavailable Unavailable KARINA, TAMIE SALGADO Unavailable Unavailable KARINA, TAMIE SALGADO Unavailable Unavailable KARINA, TAMIE SALGADO Unavailable Unavailable KARINA, TAMIE SALGADO Unavailable Unavailable KARINA, TAMIE SALGADO Unavailable Unavailable KARINA, TAMIE SALGADO Unavailable Unavailable KARINA, TAMIE SALGADO Unavailable Unavailable KARINA, TAMIE SALGADO Unavailable Unavailable KARINA, TAMIE SALGADO Unavailable Unavailable KARINA, TAMIE SALGADO Unavailable Unavailable KARINA, TAMIE SALGADO Unavailable Unavailable KARINA, TAMIE SALGADO Unavailable Unavailable KARINA, TAMIE SALGADO Unavailable Unavailable KARINA, TAMIE SALGADO Unavailable Unavailable KARINA, TAMIE SALGADO Unavailable Unavailable KARINA, TAMIE SALGADO Unavailable Unavailable KARINA, TAMIE SALGADO Unavailable Unavailable KARINA, TAMIE SALGADO Unavailable Unavailable KARINA, TAMIE SALGADO Unavailable Unavailable KARINA, TAMIE SALGADO Unavailable Unavailable KARINA, TAMIE SALGADO Unavailable Unavailable KARINA, TAMIE SALGADO Unavailable Unavailable KARINA, TAMIE SALGADO Unavailable Unavailable KARINA, TAMIE SALGADO Unavailable Unavailable KARINA, TAMIE SALGADO Unavailable Unavailable Bartoszewski, Cora Vale MS, RPA-C Unavailable Unav ailable Bartoszewski, Cora Vale MS, RPA-C Unavailable Unav ailable Bartoszewski, Cora Vale MS, RPA-C Unavailable Unav ailable Bartoszewski, Cora Vale MS, RPA-C Unavailable Unav ailable Bartoszewski, Cora Vale MS, RPA-C Unavailable Unav ailable Bartoszewski, Cora Vale MS, RPA-C Unavailable Unav ailable Bartoszewski, Cora Vale MS, RPA-C Unavailable Unav ailable Bartoszewski, Cora Vale MS, RPA-C Unavailable Unav ailable Bartoszewski, Cora Vale MS, RPA-C Unavailable Unav ailable Bartoszewski, Cora Vale MS, RPA-C Unavailable Unav ailable Bartoszewski, Cora Vale MS, RPA-C Unavailable Unav ailable Bartoszewski, Cora Vale MS, RPA-C Unavailable Unav ailable Bartoszewski, Cora Vale MS, RPA-C Unavailable Unav ailable Bartoszewski, Cora Vale MS, RPA-C Unavailable Unav ailable Bartoszewski, Cora Vale MS, RPA-C Unavailable Unav ailable Bartoszewski, Cora Vale MS, RPA-C Unavailable Unav ailable Bartoszewski, Cora Vale MS, RPA-C Unavailable Unav ailable Bartoszewski, Cora Vale MS, RPA-C Unavailable Unav ailable Bartoszewski, Cora Vale MS, RPA-C Unavailable Unav ailable Bartoszewski, Cora Vale MS, RPA-C Unavailable Unav ailable Bartoszewski, Cora Vale MS, RPA-C Unavailable Unav ailable Bartoszewski, Cora Vale MS, RPA-C Unavailable Unav ailable Bartoszewski, Cora Vale MS, RPA-C Unavailable Unav ailable Bartoszewski, Cora Vale MS, RPA-C Unavailable Unav ailable Bartoszewski, Cora Vale MS, RPA-C Unavailable Unav ailable Bartoszewski, Cora Vale MS, RPA-C Unavailable Unav ailable Bartoszewski, Cora Vale MS, RPA-C Unavailable Unav ailable Bartoszewski, Cora Vale MS, RPA-C Unavailable Unav ailable Bartoszewski, Cora Vale MS, RPA-C Unavailable Unav ailable Re-disclosure Warning The records that you are about to access may contain information from federally-assisted alcohol or drug abuse programs. If such information is present, then the following federally mandated warning applies: This information has been disclosed to you from records protected by federal confidentiality rules (42 CFR part 2). The federal rules prohibit you from making any further disclosure of this information unless further disclosure is expressly permitted by the written consent of the person to whom it pertains or as otherwise permitted by 42 CFR part 2. A general authorization for the release of medical or other information is NOT sufficient for this purpose. The Federal rules restrict any use of the information to criminally investigate or prosecute any alcohol or drug abuse patient.The records that you are about to access may contain highly sensitive health information, the redisclosure of which is protected by Article 27-F of the [facility] Public Health law. If you continue you may have access to information: Regarding HIV / AIDS; Provided by facilities licensed or operated by the [facility] Office of Mental Health; or Provided by the [facility] Office for People With Developmental Disabilities. If such information is present, then the following [facility] mandated warning applies: This information has been disclosed to you from confidential records which are protected by state law. State law prohibits you from making any further disclosure of this information without the specific written consent of the person to whom it pertains, or as otherwise permitted by law. Any unauthorized further disclosure in violation of state law may result in a fine or intermediate sentence or both. A general authorization for the release of medical or other information is NOT sufficient authorization for further disc losure. Allergies and Adverse Reactions Type Description Substance Reaction Status Data Source(s ) No Known Allergies No Known Allergies [facility] Drug Class NO KNOWN ALLERGIES NO KNOWN ALLERGIES [facility] Family History Family Member Name Family Member Gender Family Member Status Date o f Status Description Data Source(s) Unknown Condition [facility] Unknown Condition [facility] Unknown Condition [facility] Unknown Condition [facility] Unknown Condition [facility] Unknown Male Problem [facility] ([facility] Unknown Unknown Problem [facility] ([facility], ) Dx at age 45-Father Encounters Encounter Providers Location Date Indications Data Source(s ) Outpatient Attender: MONI ARREDONDO MDConsultant: Serenity Becker NP 08/04/2020 01:49:00 PM [facility] - 08/04/2020 01:49:00 PM [facility] Outpatient Attender: DAYRON PEARSON MDConsultant: Serenity Becker NP 07/08/2020 08:30:00 AM [facility] - 07/08/2020 10:35:00 AM [facility] Patient discharged. Outpatient Attender: Bernard Esteves MD 07/07/2020 12:00:00 A [facility] Outpatient Attender: Vale Marks MS, RPA-CConsultan t: Serenity Becker NP 07/04/2020 10:13:00 AM [facility] - 07/04/2020 11:13:00 AM [facility] Patient discharged. Outpatient Attender: DAYRON PEARSON MDConsultant: Serenity Becker NP 06/16/2020 12:44:00 PM EST - 06/16/2020 01:44:00 PM EST [facility] Outpatient Attender: DAYRON PEARSON MDConsultant: Serenity Becker NP 06/15/2020 08:12:00 AM EST - 06/15/2020 08:12:00 AM [facility] Outpatient Attender: DAYRON PEARSON MD Family Practice 06/15/2020 07:15:0 0 AM EST [facility] ([facility]) Outpatient Attender: MONI ARREDONDO MDConsultant: Serenity Becker NP 06/02/2020 02:04:00 PM EST - 06/02/2020 02:04:00 PM [facility] Outpatient Attender: MONI ARREDONDO MD Family Practice 05/24 01:30:00 PM EST [facility] ([facility] Outpatient Attender: Bandar Diaz MDConsultant: Serenity Daugherty 05/24/2020 01:50:00 PM EST - 05/24/2020 02:50:00 PM [facility] Patient discharged. Outpatient Attender: ZACHERY WHITLEY PAConsultant: Silvana Mansfield MD 05/10/2020 10:49:00 AM EST - 05/10/2020 10:49:00 AM [facility] Outpatient Attender: Serenity Becker NP 2020 10:01:[address] WITH, ABD PAIN [facility] WITH, ABD PAIN Outpatient Attender: Serenity Becker NP 04/27/2020 12:55:[address] Z12.4,R10.30 [facility] Z12.4,R10.30 Outpatient Attender: Serenity Cristobaleferrer: Serenity Becker NP 04/27/2020 10:18:00 AM [facility] Outpatient Attender: Serenity Becker NP 04/26/2020 07:15:[address] E78.5,Z09 [facility] E78.5,Z09 Outpatient Attender: Leon Mota MDReferrer: Silvana Mansfield MD 02/16/2020 07:37:15 AM EDT [facility] Recurring Patient Attender: Leon Mota MDReferrer: Silvana stiles MD 02/01/2020 01:46:00 PM EDT [facility] Preadmit Attender: Serenity Becker NP 01/20/2020 02:47:00 PM E DT Z09 [facility] Z09 Outpatient Attender: Serenity Becker NP 01/19/2020 02:35:0 0 PM EDT SCREEN, POST MENOPAUSAL,Z12.31,N95.1,Z09, [facility] SCREEN, POST MENOPAUSAL,Z12.31,N95.1,Z09 , Outpatient Attender: Serenity Cristobaleferrer: Serenity Becker NP 01/07/2020 09:00:00 AM EDT - 01/07/2020 09:57:00 AM EDT [facility] Outpatient Attender: TAMIE MAYORGA MDReferrer: Serenity Becker NP 09/04/2019 09:46:00 AM EDT - 09/04/2019 10:22:00 AM EDT [facility] Outpatient Attender: Serenity Cristobaleferrer: Serenity Becker NP 09/01/2019 09:48:00 AM EDT [facility] Outpatient Attender: ZACHERY WHITLEY PAConsultant: Silvana Mansfield MD 08/30/2019 11:06:00 AM EDT - 08/30/2019 11:06:00 AM EDT [facility] Outpatient Attender: Serenity Cristobaleferrer: Serenity Becker NP 07/20/2019 12:56:00 PM EST [facility] Medications Medication Brand Name Start Date Product Form Dose Route Admi nistrative Instructions Pharmacy Instructions Status Indications Reaction Description Data Source(s) Magnesium Hydroxide 80 MG/ML Oral Suspension Milk Of Magnrayne a 06/08/2020 12:00:00 AM EST ORAL active M [facility] ([facility], ) Clenpiq Clenpiq 06/08/2020 12:00:00 AM EST active [facility] ([facility], ) Misoprostol 0.2 MG Oral Tablet [Cytotec] Cytotec 06/02/2020 12:00: 00 AM EST completed [facility] ([facility]) Chlorthalidone 25 MG Oral Tablet Chlorthalidone 04/27/2020 11:04:42 AM EST 12.5 MG active [facility] Spironolactone 25 MG Oral Tablet Spironolactone 04/27/2020 10:40:56 AM EST 25 MG active [facility] pantoprazole 40 MG Delayed Release Oral Tablet Pantoprazole Pantoprazole 04/27/2020 10:40:51 AM EST 40 MG active [facility] Lisinopril 20 MG Oral Tablet Lisinopril 04/27/2020 10:40:45 AM EST 20 MG active [facility] Citalopram 20 MG Oral Tablet Citalopram 04/27/2020 10:40:39 AM EST 40 MG active [facility] Chlorthalidone 25 MG Oral Tablet Chlorthalidone 04/27/2020 10:40:30 AM EST 25 MG completed [facility] Spironolactone 25 MG Oral Tablet Spironolactone 01/07/2020 09:45:11 AM EDT 25 MG active [facility] Spironolactone 25 MG Oral Tablet Spironolactone 01/07/2020 09:45:11 AM EDT 25 MG completed [facility] pantoprazole 40 MG Delayed Release Oral Tablet Pantoprazole Pantoprazole 01/07/2020 09:44:57 AM EDT 40 MG completed [facility] pantoprazole 40 MG Delayed Release Oral Tablet Pantoprazole Pantoprazole 01/07/2020 09:44:57 AM EDT 40 MG active [facility] Lisinopril 20 MG Oral Tablet Lisinopril 01/07/2020 09:44:47 AM EDT 20 MG completed [facility] Lisinopril 20 MG Oral Tablet Lisinopril 01/07/2020 09:44:47 AM EDT 20 MG active [facility] Citalopram 20 MG Oral Tablet Citalopram 01/07/2020 09:44:39 AM EDT 40 MG active [facility] Citalopram 20 MG Oral Tablet Citalopram 01/07/2020 09:44:39 AM EDT 40 MG completed [facility] Citalopram 20 MG Oral Tablet Citalopram 12/29/2019 04:45:40 PM EDT 40 MG completed [facility] Citalopram 20 MG Oral Tablet Citalopram 12/29/2019 04:45:40 PM EDT 40 MG completed [facility] Spironolactone 25 MG Oral Tablet Spironolactone 10/07/2019 02:43:49 PM EDT 25 MG completed [facility] Spironolactone 25 MG Oral Tablet Spironolactone 10/07/2019 02:43:49 PM EDT 25 MG completed [facility] pantoprazole 40 MG Delayed Release Oral Tablet Pantoprazole Pantoprazole 10/07/2019 02:43:28 PM EDT 40 MG completed [facility] pantoprazole 40 MG Delayed Release Oral Tablet Pantoprazole Pantoprazole 10/07/2019 02:43:28 PM EDT 40 MG completed [facility] Lisinopril 20 MG Oral Tablet Lisinopril 10/07/2019 02:42:23 PM EDT 20 MG completed [facility] Lisinopril 20 MG Oral Tablet Lisinopril 10/07/2019 02:42:23 PM EDT 20 MG completed [facility] Citalopram 20 MG Oral Tablet Citalopram 10/07/2019 02:42:19 PM EDT 40 MG completed [facility] Citalopram 20 MG Oral Tablet Citalopram 10/07/2019 02:42:19 PM EDT 40 MG completed [facility] Chlorthalidone 25 MG Oral Tablet Chlorthalidone 10/07/2019 02:41:05 PM EDT 25 MG active [facility] Chlorthalidone 25 MG Oral Tablet Chlorthalidone 10/07/2019 02:41:05 PM EDT 25 MG completed [facility] Amoxicillin 875 MG / Clavulanate 125 MG Oral Tablet Am oxicillin-Pot Clavulanate Amoxicillin-Pot Clavulanate 09/01/2019 10:25:19 AM EDT 1 TAB active [facility] Amoxicillin 875 MG / Clavulanate 125 MG Oral Tablet Am oxicillin-Pot Clavulanate Amoxicillin-Pot Clavulanate 09/01/2019 10:25:19 AM EDT 1 TAB active [facility] Amoxicillin 875 MG / Clavulanate 125 MG Oral Tablet Am oxicillin-Pot Clavulanate Amoxicillin-Pot Clavulanate 09/01/2019 10:25:19 AM EDT 1 TAB completed [facility] Amoxicillin 875 MG / Clavulanate 125 MG Oral Tablet Am oxicillin-Pot Clavulanate Amoxicillin-Pot Clavulanate 09/01/2019 10:25:19 AM EDT 1 TAB completed [facility] cefdinir 300 MG Oral Capsule Cefdinir 08/30/2019 12:00:00 AM EST ORAL active [facility] ([facility]) Ondansetron 4 MG Disintegrating Oral Tablet Ondansetron 08/30/2019 12:00:00 AM EST ORAL active [facility] ([facility]) 200 ACTUAT Albuterol 0.09 MG/ACTUAT Metered Dose Inhal er [Ventolin] Ventolin HFA 08/30/2019 12:00:00 AM EST ORAL active [facility] ([facility]) Lisinopril 20 MG Oral Tablet Lisinopril 08/30/2019 12:00:00 AM EST ORAL active [facility] ([facility]) pantoprazole 40 MG Delayed Release Oral Tablet Pantoprazole Sodium 08/30/2019 12:00:00 AM EST ORAL active M [facility] ([facility]) Hydrochlorothiazide 25 MG / Spironolactone 25 MG Oral Tablet Spironolactone/Hydrochlorothiazide 08/30/2019 12:00:00 AM EST ORAL active [facility] ([facility]) Citalopram 20 MG Oral Tablet Citalopram 07/20/2019 01:31:13 PM EST 40 MG completed [facility] Citalopram 20 MG Oral Tablet Citalopram 07/20/2019 01:31:13 PM EST 40 MG completed [facility] Citalopram 20 MG Oral Tablet Citalopram 07/20/2019 01:31:13 PM EST 40 MG active [facility] Citalopram 20 MG Oral Tablet Citalopram 07/20/2019 01:31:13 PM EST 40 MG active [facility] Citalopram 20 MG Oral Tablet Citalopram 07/20/2019 01:31:13 PM EST 40 MG active [facility] Chlorthalidone 25 MG Oral Tablet Chlorthalidone 07/20/2019 01:19:39 PM EST 25 MG completed [facility] Chlorthalidone 25 MG Oral Tablet Chlorthalidone 07/20/2019 01:19:39 PM EST 25 MG active [facility] Chlorthalidone 25 MG Oral Tablet Chlorthalidone 07/20/2019 01:19:39 PM EST 25 MG active [facility] Chlorthalidone 25 MG Oral Tablet Chlorthalidone 07/20/2019 01:19:39 PM EST 25 MG completed [facility] Chlorthalidone 25 MG Oral Tablet Chlorthalidone 07/20/2019 01:19:39 PM EST 25 MG active [facility] Spironolactone 25 MG Oral Tablet Spironolactone 07/20/2019 01:17:24 PM EST 25 MG active [facility] Spironolactone 25 MG Oral Tablet Spironolactone 07/20/2019 01:17:24 PM EST 25 MG active [facility] Spironolactone 25 MG Oral Tablet Spironolactone 07/20/2019 01:17:24 PM EST 25 MG active [facility] Spironolactone 25 MG Oral Tablet Spironolactone 07/20/2019 01:17:24 PM EST 25 MG completed [facility] Spironolactone 25 MG Oral Tablet Spironolactone 07/20/2019 01:17:24 PM EST 25 MG completed [facility] Lisinopril 20 MG Oral Tablet Lisinopril 07/20/2019 01:16:34 PM EST 20 MG completed [facility] Lisinopril 20 MG Oral Tablet Lisinopril 07/20/2019 01:16:34 PM EST 20 MG active [facility] Lisinopril 20 MG Oral Tablet Lisinopril 07/20/2019 01:16:34 PM EST 20 MG completed [facility] Lisinopril 20 MG Oral Tablet Lisinopril 07/20/2019 01:16:34 PM EST 20 MG active [facility] Lisinopril 20 MG Oral Tablet Lisinopril 07/20/2019 01:16:34 PM EST 20 MG active [facility] pantoprazole 40 MG Delayed Release Oral Tablet Pantoprazole Pantoprazole 07/20/2019 01:16:21 PM EST 40 MG active [facility] pantoprazole 40 MG Delayed Release Oral Tablet Pantoprazole Pantoprazole 07/20/2019 01:16:21 PM EST 40 MG completed [facility] pantoprazole 40 MG Delayed Release Oral Tablet Pantoprazole Pantoprazole 07/20/2019 01:16:21 PM EST 40 MG completed [facility] pantoprazole 40 MG Delayed Release Oral Tablet Pantoprazole Pantoprazole 07/20/2019 01:16:21 PM EST 40 MG active [facility] pantoprazole 40 MG Delayed Release Oral Tablet Pantoprazole Pantoprazole 07/20/2019 01:16:21 PM EST 40 MG active [facility] Citalopram 20 MG Oral Tablet Citalopram 04/11/2016 03:56:00 PM EDT 40 MG completed [facility] Citalopram 20 MG Oral Tablet Citalopram 04/11/2016 03:56:00 PM EDT 40 MG completed [facility] Citalopram 20 MG Oral Tablet Citalopram 04/11/2016 03:56:00 PM EDT 40 MG completed [facility] Citalopram 20 MG Oral Tablet Citalopram 04/11/2016 03:56:00 PM EDT 40 MG completed [facility] Citalopram 20 MG Oral Tablet Citalopram 04/11/2016 03:56:00 PM EDT 40 MG completed [facility] ferrous sulfate 160 MG Extended Release Oral Tablet Fe rrous Sulfate, Dried Ferrous Sulfate, Dried 05/25/2015 11:32:00 AM EST 160 MG completed [facility] ferrous sulfate 160 MG Extended Release Oral Tablet Fe rrous Sulfate, Dried Ferrous Sulfate, Dried 05/25/2015 11:32:00 AM EST 160 MG completed [facility] ferrous sulfate 160 MG Extended Release Oral Tablet Fe rrous Sulfate, Dried Ferrous Sulfate, Dried 05/25/2015 11:32:00 AM EST 160 MG completed [facility] ferrous sulfate 160 MG Extended Release Oral Tablet Ferrous Sulfate, Dried (Iron) 160 MG tablet extended release Ferrous Sulfate, Dried (Iron) 160 MG tablet extended release 05/25/2015 11:32:00 AM EST 160 MG completed [facility] ferrous sulfate 160 MG Extended Release Oral Tablet Ferrous Sulfate, Dried (Iron) 160 MG tablet extended release Ferrous Sulfate, Dried (Iron) 160 MG tablet extended release 05/25/2015 11:32:00 AM EST 160 MG completed [facility] Insurance Providers Payer name Policy type / Coverage type Policy ID Covered republican ID Covered republican's relationship to julien Policy Julien Plan Information [employer] [place] [employer] 400/900 [id number] SP [id number] [place] PPO 302/307 [id number] BLUE [employer]OSS [employer]UE [employer] [id number] 18 [id number] BLUE CROSS BLUE SHIELD -O/P [id number] 18 [id number] EXCELLUS BCBS B [id number] S SET [id number] BCBS GENERIC C [id number] Self [id number] BLUE CROSS BLUE SHIELD -O/P [id number] 18 [id number] Blue Cross Blue Shield P [id number] SELF [id number] [employer] [place] Individual Policy [id number] Self [id number] [employer] [place] Individual Policy [id number] Self [id number] BCBS [employer] U/W Commercial [id number] Self [id number] [employer] [place] Individual Policy [id number] Self [id number] Excell[employer] BCBS Medigap Part B [id number] Self [id number] Excellus BCBS Health Maintenance Organization (HMO) [id number] Self [id number] [employer] [place] [employer] 400/900 [id number] SP [id number] [employer] [place] Individual Policy [id number] Self [id number] Excell[employer] BCBS Medigap Part B [id number] Self [id number] EXCELLUS BCBS [id number] Akila SET [id number] [employer] [place] Individual Policy [id number] Self [id number] [employer] [place] Individual Policy [id number] Self [id number] [place] Individual Policy [id number] Self [id number] [place] Individual Policy [id number] Self [id number] [employer] [place] Individual Policy [id number] Self [id number] [employer] [place] Individual Policy [id number] Self [id number] EXCELLUS BCBS PI PI Excellus BCBS Medigap Part B [id number] Self [id number] EXCELLUS BCBS B [id number] S SET [id number] [place] PPO 302/307 [id number] SP [id number] Excell[employer] BCBS Health Maintenance Organization (HMO) [id number] Self [id number] BLUE CROSS BLUE SHIELD -RECURRING [id number] 18 [id number] BLUE CROSS BLUE SHIELD-RECURRING [id number] 18 [id number] BCBS [facility] Individual Policy [id number] Self [id number] BCBS [facility] Individual Policy [id number] Self [id number] BLUE CROSS BLUE SHIELD -CLINIC [id number] 1 [id number] BLUE CROSS BLUE SHIELD -O/P [id number] 18 [id number] EXCELLUS C [id number] Self [id number] EXCELLUS C [id number] Self [id number] BLUE CROSS BLUE SHIELD-O/P [id number] 18 [id number] BCBS [place] O [id number] S [id number] BLUE CROSS CNY 1 [id number] 1 [id number] SELFPAY 5 UNAVAILABLE 1 UNAVAILA BLE BC EXC PLANS 1 [id number] 1 [id number] SELF PAY 2 UNAVAILABLE 1 UNAVAILA BLE EXCELLUS BCBS P [id number] S [id number] BLUE CROSS BLUE SHIELD-CLINIC [id number] 18 [id number] BLUE CROSS BLUE SHIELD-PHYSICIAN [id number] 18 [id number] BLUE CROSS BLUE SHIELD-O/P O [id number] S [id number] UNAVAILABLE UNAVAILA BLE Problems, Conditions, and Diagnoses Code Display Name Description Problem Type Effective Dates Data Source(s) 91288207 Abdominal pain Abdominal pain Problem 05/10/2020 12:00: 00 AM EST [facility] ([facility]) 74825802 Chronic cholecystitis Chronic cholecystitis Problem 05/10/2020 12:00:00 AM EST [facility] ([facility]) [id number] Essential hypertension Essential hypertension Problem 05/06/2020 12:00:00 AM EST [facility] ([facility]) [id number] Essential hypertension Essential hypertension Problem 06/22/2019 12:00:00 AM EST [facility] ([facility] ) E64230 Personal history of nicotine dependence Personal history of nicotine dependence Diagnosis 07/08/2020 08:30:00 AM [facility] R32 Unspecified urinary incontinence Unspecified urinary i ncontinence Diagnosis 07/08/2020 08:30:00 AM [facility] R350 Frequency of micturition Frequency of micturition Diag nosis 07/08/2020 08:30:00 AM [facility] N3289 Other specified disorders of bladder Other speci fied disorders of bladder Diagnosis 07/08/2020 08:30:00 AM [facility] Z1152 ENCOUNTER FOR SCREENING FOR COVID-19 ENCOUNTER F OR SCREENING FOR COVID-19 Diagnosis 07/04/2020 10:13:00 AM [facility] I499 Cardiac arrhythmia, unspecified Cardiac arrhythmia, un specified Diagnosis 06/15/2020 08:12:00 AM [facility] N8110 Cystocele, unspecified Cystocele, unspecified Diagnosi s 06/15/2020 08:12:00 AM [facility] Z719 Counseling, unspecified Counseling, unspecified Diagno sis 06/02/2020 02:04:00 PM [facility] N8500 Endometrial hyperplasia, unspecified Endometrial hyperplasia, unspecified Diagnosis 05/24/2020 01:50:00 PM [facility] Z39303 Unspecified ovarian cyst, left side Unspecified ovarian cyst, left side Diagnosis 05/24/2020 01:50:00 PM [facility] D259 Leiomyoma of uterus, unspecified Leiomyoma of ut erus, unspecified Diagnosis 05/24/2020 01:50:00 PM [facility] R1010 Upper abdominal pain, unspecified Upper abdomina l pain, unspecified Diagnosis 05/24/2020 01:50:00 PM [facility] K811 Chronic cholecystitis Chronic cholecystitis Diagnosis 05/10/2020 10:49:00 AM [facility] R1110 Vomiting, unspecified Vomiting, unspecified Diagnosis 08/30/2019 11:06:00 AM EDT [facility] J209 Acute bronchitis, unspecified Acute bronchitis, unspec ified Diagnosis 08/30/2019 11:06:00 AM EDT [facility] Surgeries/Procedures Procedure Description Date Indications Data Source(s) Biopsy Endometrial W/O Cervical Dilation 08/04/2020 12 :00:00 AM EST [facility] ([facility]) Screening mammography (procedure) 01/19/2020 03:20:00 PM EDT [facility] Dual energy X-ray photon absorptiometry (procedure) 01/19/2020 02:43:24 PM EDT [facility] l Results ID Date Data Source [id number] 08/10/2020 10:10:00 AM EST [facility] Name Value Range Interpretation Code Description Data Patricia rce(s) Supporting Document(s) SARS coronavirus 2 RNA Not Detected [facility] [place] This lab was ordered by [facility] and reported by [facility]. ID Date Data Source [id number] 08/04/2020 02:47:00 PM EST [facility] ([facility]) Name Value Range Interpretation Code Description Data Patricia rce(s) Supporting Document(s) Choriogonadotropin.beta subunit ( test) [Pres ence] in Urine Laboratory test result [facility] ([facility]) ID Date Data Source [id number] 07/10/2020 01:40:00 [place] [address] OPERATIVE SUMMARYNAME: KULWANT SOUZA DATE OF : 1965ATTENDING PHYS: DAYRON PEARSON MD DATE: 07/08/20 MR#: [id number] OF PROCEDURE: 07/08/20PREOPERATIVE DIAGNOSIS: Bladder wall thickening.POSTOPERATIVE DIAGNOSIS: Bladder wall thickening.PROCEDURE PERFORMED: Cystoscopy.ATTENDING SURGEON: Dayron Pearson MDASSISTANT: Vale Marks RPA-CANESTHESIA: Local.ESTIMATED BLOOD LOSS: Minimal.COMPLICATIONS: None.DRAINS: None.DISPOSITION: To the Ambulatory Surgical Unit.CONDITION: Stable.INTRAOPERATIVE FINDINGS: Thickening of the bladder wall in the area of the trigone. Noother abnormalities were noted. Normal position of the ureteral orifices with efflux of clear urine.DETAI LS OF PROCEDURE:After a detailed informed consent was obtained from the patient, she was wheeled into theoperating room and installed on the operating table in the supine position. She was then placed inthe lithotomy position and the perineal and vaginal areas were cleaned, prepped and draped in theusual sterile fashion. After the proper time-out procedures were carried out, the 17- Frenchcystoscope mounted on a 30 degree lens was then inserted through the urethra into the urinarybladder. A thorough survey of the bladder did not reveal any intravesical pathologies. Both ureteralorifices were noted to be in normal orthotopic position. There was however, some thickening of thetrigone of the urinary bladder which completely resolved with additional filling of the bladder.Once this was completed and I was satisfied with the condition of the cystoscopy, the bladder wasemptied, the cystoscope was withdrawn, the patient was transferred onto a stretcher on which she [address] [place] [address] OPERATIVE SUMMARYNAME: KULWANT SOUZA DATE OF : 1965ATTENDING PHYS: DAYRON PEARSON MD DATE: 07/08/20 MR#: [id number] transferred to the ambulatory surgical unit in stable condition. The operation was well-toleratedand there were no complications.cc: JEFF HornPDD: DAYRON PEARSON MD 07/08/20 10:20DT: JOSE ALEJANDRO 07/10/20 01:33DS: DAYRON PEARSON MD 07/26/20 16:09 2 Name Value Range Interpretation Code Description Data Patricia rce(s) Supporting Document(s) ID Date Data Source [id number] 07/04/2020 09:00:00 AM EST [facility] Name Value Range Interpretation Code Description Data Patricia rce(s) Supporting Document(s) SARS coronavirus 2 RNA Not Detected [facility] This lab was ordered by [facility] and reported by [facility]. ID Date Data Source [id number] 07/05/2020 02:58:00 PM EST [facility] Name Value Range Interpretation Code Description Data Patricia rce(s) Supporting Document(s) SARS-CoV-2, CEE Not Detected Not Detected [facility] This nucleic acid amplification test was developed and its performancecharacteristics determined by [facility]. Nucleic acidamplification tests include PCR and TMA. This test has not been FDAcleared or approved. This test has been authorized by FDA under anEmergency Use Authorization (EUA). This test is only authorized forthe duration of time the declaration that circumstances existjustifying the authorization of the emergency use of in vitrodiagnostic tests for detection of SARS-CoV-2 virus and/or diagnosisof COVID-19 infection under section 564(b)(1) of the Act, 21 U.S.C.360bbb-3(b) (1), unless the authorization is terminated or revokedsooner.When diagnostic testing is negative, the possibility of a falsenegative result should be considered in the context of a patient'srecent exposures and the presence of clinical signs and symptomsconsistent with COVID- 19. An individual without symptoms of COVID-19and who is not shedding SARS-CoV-2 virus would expect to have anegative (not detected) result in this assay. ORDER COVID 19 2 DAY YES [facility] ID Date Data Source [id number] 06/20/2020 09:46:00 [place] [address] PHONE: [phone] FAX: [phone] Name .................. : KULWANT HARLEY Acct Number.................. : [id number] ROOM. ................. : MR Number ................... : [id number] Stay type ............. : O/P Discharge Date......... ... : 06/16/20 Admit Date ......... : 06/16/20 Admit Phys .................... : OBENFELIX Date of ....... : 1965 Family Phys ................... : MAGANA Phone .................. : [phone] Age ................................ : 55 Film# .................. .:[id number] Sex ................................. : F Unsigned transcriptions are preliminary reports and do not represent a medical or legal document RENAL COMPLETE [id number] COMPLETE:06/16/20 13:18 KNB 874 (PROCEDURE REASON BLADDER WALL THICKENING ON CT RENAL ULTRASOUND: INDICATION: Bladder wall thickening on CT. FINDINGS: The right kidney measures 11.2 x 3.4 cm in size. The left kidney measures 10.9 x 4.5 x 4.8 cm in size. The urinary bladder shows a volume of 250 cc pre-void. There is irregularity of the bladder wall posteriorly. An underlying bladder wall mass is not completely excluded. A cystoscopy should be considered for further celine luation. IMPRESSION: Bladder wall thickening at the posterior upper wall extending to the right side. A cystoscopy is recommended for further evaluation. Examination dictated by GONZALO Stover. Examination was reviewed with Ravi Nicole MD, radiologist at the time of this dictation. Electronically Reviewed and Signed By Ravi Nicole MD , 06/20/20 09:46, AML Transcribe Initials: STORM , Transcribe Date: 06/16/20 13:59, Dictation Date: Copy for: MICHEL VARGHESE via fax Copy for: [address] [place] [address] REC Page 1 of 1 Name Value Range Interpretation Code Description Data Patricia rce(s) Supporting Document(s) ID Date Data Source [id number] 06/15/2020 08:50:00 AM EST [facility] ([facility]) Name Value Range Interpretation Code Description Data Patricia rce(s) Supporting Document(s) US Renal/Urinary Bladder Laboratory test result [facility] ([facility]) ID Date Data Source [id number] 06/15/2020 08:00:00 AM EST [facility] ([facility]) Name Value Range Interpretation Code Description Data Patricia rce(s) Supporting Document(s) Color of Urine Laboratory test result [facility] ([facility]) Appearance of Urine Laboratory test result [facility] ([facility]) Spec [place] 1.010 [facility] ([facility]) Leukocytes Laboratory test result [facility] ([facility]) pH of Urine by Test strip 5 [facility] NT ([facility]) Nitrate [Presence] in Urine Laboratory test result [facility] ([facility]) Protein [Presence] in Urine by Test strip Laboratory test result [facility] ([facility]) Inhouse Glucose Laboratory test result [facility] ([facility]) Ketones [Presence] in Urine by Test strip Laboratory test result [facility] ([facility]) Urobilinogen Laboratory test result [facility] ([facility]) Blood type and Indirect antibody screen panel - Blood Laboratory test result [facility] ([facility]) Bilirubin.total [Presence] in Urine by Test strip Laboratory test res ult [facility] ([facility]) ID Date Data Source [id number] 05/26/2020 09:44:00 AM [facility] [address] [place] [address] PHONE: [phone] FAX: [phone] Name .................. : KULWANT SOUZA Acct Number.................. : [id number] ROOM. ................. : MR Number ................... : [id number] Stay type ............. : O/P Discharge Date......... ... : 05/24/20 Admit Date ......... : 05/24/20 Admit Phys .................... : EMILYDASHAWN BEGUM Date of ....... : 1965 Family Phys ................... : MAGANA Phone .................. : [phone] Age ................................ : 55 Film# .................. .:[id number] Sex ................................. : F Unsigned transcriptions are preliminary reports and do not represent a medical or legal document PELVIC [id number] COMPLETE:05/24/20 14:42 MARLINE 90396 (REASON FOR PELVIS: ABN CT, 5MM CYST, 2CM FIBROID TRANSABDOMINAL PELVIC ULTRASOUND: INDICATION: Cyst, fibroid, pelvic pain. FINDINGS: The uterus measures 7.0 x 3.2 x 4.6 cm. The endometrium is thickened, measuring 8 mm. The right ovary measures 2.5 x 2.7 x 1.4 cm. The left ovary measures 4.3 x 4.2 x 3.5 cm. There is a calcified fibroid identified in the posterior uterus measuring 1.6 x 2.3 x 1.3 cm. There is a complex cystic s tructure identified in the left ovary measuring 3.4 x 3.5 x 3.2 cm. This was identified previously and measured 4.2 x 2.8 x 3.3 cm on 11/30/15. IMPRESSION: Stable posterior calcified uterine fibroid and left complex cyst. The endometrium is thickened, measuring 8 mm. Previously, the endometrium measured 1 cm. Tissue sampling should be considered. Examination dictated by GONZALO Stover. Examination was reviewed with Sabrina Griggs MD, radiologist at the time of this dictation. Electronically Reviewed and Signed By Sabrina Griggs MD , 05/26/20 09:44, KGRebekah Transcribe Initials: DZ , Transcribe Date: 05/24/20 15:07, Dictation Date: Copy for: EMILY Jimenez via fax Copy for: 710 MED REC Page 1 of 1 Name Value Range Interpretation Code Description Data Patricia rce(s) Supporting Document(s) ID Date Data Source [id number] 05/18/2020 10:54:00 AM EST [facility] ([facility]) Name Value Range Interpretation Code Description Data Patricia rce(s) Supporting Document(s) US Pelvic Laboratory test result [facility] ([facility]) ID Date Data Source [id number] 05/18/2020 10:52:00 AM EST [facility] ([facility]) Name Value Range Interpretation Code Description Data Patricia rce(s) Supporting Document(s) MRI Abdomen W/O Contrast Laboratory test result [facility] ([facility]) ID Date Data Source [id number] 2020 11:41:00 AM EST [place] [address] [place] [id number] [phone] NAME SEX PT STATUS ACCOUNT NUMBER HARLEY SHAY REG REF [id number] ORDERING PHYSICIAN LOCATION MEDICAL RECORD NO. Serenity DIRECTOR OF OPERATIONS [facility] [place] [id number] ATTENDING PHYSICIAN DATE OF DATE OF EXAM/TIME Serenity Becker NP 1965 05/02/20956 TYPE / EXAM CT Abd/pel w/ contrast REASON FOR EXAM abdominal pain CLINICAL HISTORY: 55 years of age, Female, abdominal pain. TECHNIQUE: Multiple helical images of the abdomen and pelvis obtained scanning from the hemidiaphragms to the symphysis pubis, following the administration of 100 mL of Isovue 300 IV contrast. Oral contrast was administered. Coronal and sagittal reformatted images performed. Dose reduction techniques were used including automated exposure control and adjustment of mA and/or KV according to patient size. Radiation dose: CTDI: 22.62 DLP: 1059 COMPARISON: None available. FINDINGS: Pulmonary base: The lung bases clear. There is no pleural effusion. Cardiovascular base/vascular: The heart base is normal in size. There is no significant pericardialeffusion. The abdominal aorta is normal in course and caliber. Liver: The liver is unremarkable. No hepatic masses or lesions are identified. Gallbladder and Biliary System: Multiple layering stones are seen within the gallbladder. No significant gallbladder wall thickening or pericholecystic fluid collection is noted. Mild dilation of the common bile duct measuring 9 mm in diameter. Pancreas: Normal. Spleen: Normal. Adrenal: Normal. Kidneys and Ureters: The kidneys are symmetric in size and enhancement. There is no evidence for obstructive uropathy. Urinary Bladder: The urinary bladder is underdistended limiting evaluation. Diffuse bladder wall thickening is present, which may be at least in part related to underdistention. Reproductive Organs: Ill-defined mass with multiple coarse calcifications in the dorsal uterine body measuring approximately 2.1 cm, likely representing a degenerating fibroid, (series 2, image 108, and series 4, image 65). Large cystic structure in the left adnexa measuring approximately 4.9 cm, likely representing an ovarian cyst, (series 2, image 112). Gastrointestinal: Oral contrast is seen extending to the ileocecal valve. Status post bariatric surgery. Small hiatal hernia. The small bowel is unremarkable. There is no evidence for obstruction.The colon is filled with air and stool is otherwise unremarkable. Appendix: A tiny air-filled tubular structure is seen adjacent to the cecum, likely representing a small air-filled appendix. Peritoneum/Retroperitoneum: No significant intra-abdominal ascites or pneumoperitoneum is present. Mild infiltration of the mesentery just left of midline with mildly prominent lymph nodes, (series 2, image 64, and series 3, image 29). Small periumbilical hernia containing fat. Lymphatic: Shotty retroaortic, mesenteric, and inguinal lymph nodes are present, a nonspecific finding. Musculoskeletal: Multilevel degenerative changes of the thoracolumbar spine. IMPRESSION: 1. Cholelithiasis. No gallbladder wall thickening or pericholecystic fluid collection is noted. 2. Mild common bile duct dilatation. If there is concern for biliary obstruction, further evaluation with MRCP/ERCP can be helpful. 3. Nonspecific stranding in the root of the mesentery with scattered associated subcentimeter mesenteric lymph nodes. Most cases are idiopathic and/or reactive. Differential diagnosis would include, mesenteric panniculitis or lymphedema, lymphoma is not excluded. 4. 2.1 cm uterine fibroid. 4.9 cm cystic structure in the left adnexa, likely an ovarian cyst. Further evaluation with pelvic sonography can be obtained if clinically warranted. 5. Circumferential thickening of the bladder wall may be due to under distention or cystitis in the appropriate clinical setting. Correlation with urinalysis is recommended. Reported By Jason Burgos DO on 05/02/20 1141 Signed By Jason Burgos DO on 05/02/20 1156 Date Time CC: Jason Burgos DO; Serenity MELARA Andrew Techn: BAIAB Trans Dt/Tm: Trans by: DT Prt Dt/Tm: 3185-5046: Total DLP = 1059.00 mGy-cm 3126-2348: Total Radiation Dose = 15.8850 mSv Lifetime Dose: 15.8850 mSv Name Value Range Interpretation Code Description Data Patricia rce(s) Supporting Document(s) ID Date Data Source [id number] 04/27/2020 04:03:00 PM EST [facility] @04/27/20 1539: UA W/ MICRO added. RFLXG = UMIC CIF.Method of Collection:: Clean Catch @04/27/20 1603: Urine culture added. RFL XG = CULT.ADD. @04/27/20 1539: UA W/ MICRO added. RFLXG = UMIC CIF.Method of Collection:: Clean Catch Name Value Range Interpretation Code Description Data Ptaricia rce(s) Supporting Document(s) Color of Urine [facility] Appearance of Urine CLEAR [facility] pH of Urine by Test strip 5.0 5-8 [facility] Specific gravity of Urine by Refractometry 1.008 1.005-1.030 [facility] Leukocyte esterase [Presence] in Urine by Test strip NEGATIVE Abnormal (applies to non-numeric results) [facility]A Culture has been added to this specimen per established criteria Nitrite [Presence] in Urine by Test strip NEGATIVE [facility] Protein [Presence] in Urine by Test strip NEGATIVE [facility] Glucose [Mass/volume] in Urine by Automated test strip NEGATIVE NEG ATIVE [facility] Ketones [Presence] in Urine by Test strip NEGATIVE [facility] Urobilinogen [Presence] in Urine 0.2-1 EU/dl [facility] Bilirubin.total [Presence] in Urine by Automated test strip NEGATIVE [facility] Erythrocytes [#/volume] in Urine by Test strip NEGATIVE NEGATIVE [facility] URINE MICROSCOPIC? (CIF) Microscopic Added [facility] ID Date Data Source [id number] 04/28/2020 12:55:00 PM EST [facility] @04/27/20 1539: UA W/ MICRO added. RFLXG = UMIC CIF.Method of Collection:: Clean Catch @04/27/20 1603: Urine culture added. RFL XG = CULT.ADD. @04/27/20 1539: UA W/ MICRO added. RFLXG = UMIC CIF.Method of Collection:: Clean Catch Name Value Range Interpretation Code Description Data Patricia rce(s) Supporting Document(s) Bacteria identified in Urine by Culture [facility] ID Date Data Source [id number] 04/27/2020 04:03:00 PM EST [facility] @04/27/20 1539: UA W/ MICRO added. RFLXG = UMIC CIF.Method of Collection:: Clean Catch @04/27/20 1603: Urine culture added. RFL XG = CULT.ADD. @04/27/20 1539: UA W/ MICRO added. RFLXG = UMIC CIF.Method of Collection:: Clean Catch Name Value Range Interpretation Code Description Data Patricia rce(s) Supporting Document(s) Leukocytes [#/volume] in Urine by Manual count OCCASIONAL 0-5 [facility] Cells [Type] in Urine sediment by Light microscopy [facility] ID Date Data Source [id number] 05/04/2020 08:02:00 AM EST [facility] LAST MENSTRUAL PERIOD [id number] ction Technique: BRUSH-SPATULAPATIENT INFORMATION: MENOPAUSALPREVIOUS CYTOLOGY: ATYPICALPREVIOUS TREATMENT: COLP- BXBody Site: CERVIX Name Value Range Interpretation Code Description Data Patricia rce(s) Supporting Document(s) Microscopic observation [Identifier] in Vaginal fluid by Cyt o stain.thin prep [facility] ID Date Data Source [id number] 04/27/2020 10:22:00 AM EST [facility] Patient Name: HARLEY SHAY : 1965 Sex: F Pt Unit #: [id number] Location:[facility] Provider: Visit Date/Time: 04/27/20 Primary Insurance: /[facility] [place] Secondary Insurance: Self Pay Intake Vital Signs 04/27/20 10:22 Current Height 5 ft 6 in Current Weight 226 lb 0.8 oz Weight Measurement Method Standing Scale BMI 36.4 BP 130/80 Blood Pressure Location Lt brachial Position Sitting Respiration 18 Pulse 68 Pulse Strength Normal Pulse Source Pulse Oximeter Pulse Oximetry (%) 98 Oxygen Delivery Method room air Intake Visit Reasons: Pap Smear Nurse Note: PT IS HERE TODAY FOR PAP Is patient in pain?: No Allergies No Known Drug Allergies Allergy (Unverified 04/11/16 15:55) Medications chlorthalidone 12.5 mg (1/2 x 25 mg) PO .mwf citalopram 40 mg (2 x 20 mg) PO DAILY lisinopril 20 mg PO QDAY pantoprazole 40 mg PO QDAY spironolactone 25 mg PO QDAY Fall Risk History of falls: No Ambulatory Aid:: None Gait/Transferring:: Normal Medications:: No High Risk Medications HIV Testing Offer - ages 13-64 Requirement for HIV testing offer been met?: Declines today. Pretest education received and acknowledged Hep C Testing Offered: Yes Hep C Requirement met: Patient reports past refusal Coronavirus Screening Screening Have you traveled outside of [facility] or [facility] in the last 14 days.: No Has patient experienced coronavirus symptoms: No [facility] Medical History (Updated 04/27/20 @ 11:08 by Serenity Becker NP) Anxiety History of gastric bypass Sleep apnea Surgical History History of - surgery ( 2000) History of gastric bypass ( 2011) Status post carpal tunnel release Family History Mother Adenoid cystic carcinoma of oropharynx Father Carcinoma of colon Brother Adenoid cystic carcinoma of oropharynx Brother No problems noted. Sister Heart disease Chronic obstructive lung disease Sister Chronic obstructive lung disease Social History Does the Patient have a Healthcare Proxy: Yes ( RAMON) Does Patient have a DNR?: Yes Does Patient have a Living Will?: Yes Smoking Status: Former smoker HPI Additional HPI HPI Details: HERE FOR PAP SMEAR/PELVIC EXAM FEELS WELL. DOES NOT NEED MED REFILLS. Review of Systems Const All systems reviewed are unremarkable except as noted in HPI and below Reports system reviewed and no additional complaints, except as documented Eyes Reports system reviewed and no additional complaints, except as documented ENT Reports system reviewed and no additional complaints, except as documented Card Reports system reviewed and no additional complaints, except as documented Resp Reports system reviewed and no additional complaints, except as documented GI Reports system reviewed and no additional complaints, except as documented Genitourinary: Reports system reviewed and no additional complaints, except as documented Musc Reports system reviewed and no additional complaints, except as documented Skin/Breast Reports system reviewed and no additional complaints, except as documented Neuro Reports system reviewed and no additional complaints, except as documented Psych Reports system reviewed and no additional complaints, except as documented Endo Reports system reviewed and no additional complaints, except as documented Jeferson/Lymph Reports system reviewed and no additional complaints, except as documented Aller/Immun Reports system reviewed and no additional complaints, except as documented Exam Const General: cooperative, healthy appearing, no acute distress, well developed and well groomed Nutritional Appearance: well nourished Orientation: alert, awake and oriented x3 HENMT Head: normal to inspection and normocephalic Ears: hearing grossly normal bilaterally General nose exam: external nose normal and nares normal Face and sinus: normal facial exam Mouth: oral mucosae normal Throat: posterior oropharynx normal Neck Neck: normal visual inspection and full ROM Neck mass: No Thyroid: thyroid normal Carotids: normal carotid upstroke Lymphatic: no lymphadenopathy noted Resp Effort Inspection: normal respiratory effort Auscultation: clear to auscultation bilaterally Percussion: percussion normal Cardio Palpation: normal PMI Rate: regular rate Rhythm: regular rhythm Heart Sounds: S1 normal and S2 normal Pulses: normal peripheral pulses GI Inspection: Yes normal to inspection Palpation: soft Percussion: normal to percussion Auscultation: normal bowel sounds General: No CVA tenderness External Female Exam: normal external appearance and normal appearance of the urethra Urethra: normal appearance of the urethra Speculum Exam - Vagina: normal appearance of the vagina Speculum Exam - Cervix: normal appearance of the cervix Bimanual Exam- Vagina Uterus: normal bimanual exam, normal palpation and no cervical motion tenderness Bimanual Exam- Adnexa, other: normal adnexae and non-tender Pelvic Support: no cystocele and no rectocele Other: 2 RAISED, BROWN COLORED NODULES ON RIGHT INNER THIGH CLOSE TO LABIA 1 FLAT HENDRICKSON MACULE WITH IRREGULAR BORDERS AND CENTRAL CLEARING IN SAME AREA SHE FEELS THIS IS GETTING LARGER Musc Cervical Spine: normal cervical lordosis and cervical ROM normal Thoracic/Lumbar Spine: thoracic and lumbar spine normal to inspection, thoraco-lumbar ROM normal andstraight leg raise negative bilaterally Skin Lesions: no lesions Rashes: no rashes Hair: normal Nails: normal Extrem General: normal to inspection and full ROM Psych Appearance: grossly normal and well kempt Mental Status: mental status grossly normal Speech and Movement: speech and movement normal Affect: normal affect Attitude: cooperative Thought Process: normal Thought Content: normal Insight: insight good Judgment: judgment good Assessment Plan Assessment Plan (1) Encounter for Papanicolaou smear for cervical cancer screening: Code(s): Z12.4 - Encounter for screening for malignant neoplasm of cervix Plan - Serenity Becker NP: REFER TO DERM RTC 3 MONTHS Orders: Orders: Thinprep w/HPV if ASCUS Today Orders Other Medications: Changed: From: chlorthalidone take 1/2 tab mon wed frid 25 mg PO .mwf 36 tabs 3RF To: chlorthalidone 12.5 mg (1/2 x 25 mg) PO .mwf 36 tabs 3RF Refilled: chlorthalidone take 1/2 tab mon wed frid 25 mg PO .mwf 36 tabs 3RF citalopram 40 mg (2 x 20 mg) PO DAILY 180 tabs 1RF lisinopril 20 mg PO QDAY 90 tabs 0RF pantoprazole 40 mg PO QDAY 90 tabs 0RF spironolactone 25 mg PO QDAY 90 tabs 0RF Other Orders: Orders: UA W/ CULTURE IF ABNORMAL Today R10.30 <Electronically signed by Serenity Becker NP> 04/27/20 1111 Name Value Range Interpretation Code Description Data Patricia rce(s) Supporting Document(s) ID Date Data Source [id number] 04/26/2020 08:31:00 AM EST [facility] Name Value Range Interpretation Code Description Data Patricia rce(s) Supporting Document(s) Leukocytes [#/volume] in Blood by Automated count 3.0 10*3/uL 4.45-10.71 Below low normal [facility] Erythrocytes [#/volume] in Blood by Automated count 3.63 10*6/uL 4.20-5.40 Below low normal [facility] Hemoglobin [Moles/volume] in Blood 11.9 g/dL 10.7-15.4 N [facility] Hematocrit [Volume Fraction] of Blood by Automated count 37.5 % 3 7-47 N [facility] Erythrocyte mean corpuscular volume [Ent itic volume] in Cord blood by Automated count 103.3 fL 80-96 Above high normal [facility] Erythrocyte mean corpuscular hemoglobin [Entitic mass] by Automated count 32.8 pg 27-31 Above high normal [facility] spital Erythrocyte mean corpuscular hemoglobin concentration [Mass/volume] in Cord blood 31.7 g/dL 33-37 Below low normal [facility] Erythrocyte distribution width [Entitic volume] by Automated count 13 % 11-15 N [facility] Platelets [#/volume] in Blood by Automated count 215 10*3/uL 130-472 N [facility] Platelet mean volume [Entitic volume] in Blood 9.8 fL 9.1-13.1 N [facility] Neutrophils/100 leukocytes in Blood by Automated count 55.8 % 41- 77 N [facility] Neutrophils [#/volume] in Blood by Automated count 1.7 U 1.7-7.6 N [facility] Lymphocytes/100 leukocytes in Blood by Automated count 29.9 % 14- 46 N [facility] Lymphocytes [#/volume] in Blood by Automated count 0.9 U 0.6-4.6 N [facility] Monocytes/100 leukocytes in Blood by Automated count 9.0 % 4-12 N [facility] Monocytes [#/volume] in Blood by Automated count 0.3 U 0.2-1.2 N [facility] Eosinophils/100 leukocytes in Blood by Automated count 4.3 % 0-7 N [facility] Eosinophils [#/volume] in Blood by Automated count 0.1 U 0.0-0.5 N [facility] Basophils/100 leukocytes in Blood by Automated count 0.7 % 0.4-1 .3 N [facility] Basophils [#/volume] in Blood by Automated count 0.0 U 0.0-0.2 [facility] NUCLEATED RED BLOOD CELL 0 % [facility] NUCLEATED RED BLOOD CELL# 0 [facility] Immature granulocytes [Presence] in Blood by Automated count 0-2 N [facility] Immature granulocytes [#/volume] in Blood by Automated count 0.0 U 0-0.1 N [facility] Manual Differential panel - Blood NO [facility] ID Date Data Source [id number] 04/26/2020 01:04:00 PM EST [facility] Name Value Range Interpretation Code Description Data Patricia rce(s) Supporting Document(s) Urea nitrogen [Mass/volume] in Serum or Plasma 12 mg/dL 9-23 N [facility] Sodium [Moles/volume] in Serum or Plasma 141 mmol/L 132-146 [facility] Potassium [Moles/volume] in Serum or Plasma 4.4 mmol/L 3.5-5.5 [facility] Chloride [Moles/volume] in Serum or Plasma 105 mmol/L 99-109 [facility] Carbon dioxide, total [Moles/volume] in Serum or Plasma 30 mmol/L 20 -31 [facility] Anion gap in Serum or Plasma 10 mmol/L 8-16 [facility] Glucose [Mass/volume] in Serum or Plasma 84 mg/dL 74-106 [facility] Creatinine 0.7 mg/dL 0.5-1.1 [facility] Glomerular filtration rate/1.73 sq M.pre dicted [Volume Rate/Area] in Serum or Plasma Greater Than 60 ABOVE 60 [facility] Alanine aminotransferase [Enzymatic acti vity/volume] in Serum or Plasma by With P-5'-P 21 U/L 10-49 [facility] ital Aspartate aminotransferase [Enzymatic ac tivity/volume] in Serum or Plasma by With P-5'-P 15 U/L 0-33 [facility] pital Alkaline phosphatase [Enzymatic activity/volume] in Serum or Plasma 81 U/L 45-129 [facility] Calcium [Mass/volume] in Serum or Plasma 9.0 mg/dL 8.5-10.1 N [facility] Bilirubin.total [Mass/volume] in Serum or Plasma 0.6 mg/dL 0.3-1.2 [facility] Albumin [Mass/volume] in Serum or Plasma by Bromocresol purple (BCP) dye binding method 3.5 g/dL 3.2-4.8 N [facility] Protein [Mass/volume] in Serum or Plasma 6.6 g/dL 5.7-8.2 [facility] ID Date Data Source [id number] 04/26/2020 01:04:00 PM [facility] Name Value Range Interpretation Code Description Data Patricia rce(s) Supporting Document(s) Triglycerides 52 mg/dL 0-150 [facility] Cholesterol 214 mg/dL 120-200 Above high normal [facility] HDL Cholesterol 119 mg/dL [facility] HDL Less than 40 mg/dL: Major risk for CHDHDL Greater than 59 mg/dL: Low risk for CHD LDL Cholesterol, Calc 85 mg/dL 0-100 N [facility] ID Date Data Source [id number] 04/26/2020 01:04:00 PM [facility] Name Value Range Interpretation Code Description Data Patricia rce(s) Supporting Document(s) Thyrotropin [Units/volume] in Serum or Plasma by Detec tion limit <= 0.005 mIU/L 2.17 u[iU]/mL 0.35-5.50 [facility] al ID Date Data Source [id number] 02/16/2020 07:37:15 AM EDT [facility]: Harley BlairB: 1965Provider: Eris Mota: 02/12/2020 AssessmentReason for Visit:Left hip pain.Harley is a 54-year-old female who is S/P left total knee, posterior stabilized doing beautifully. She had a right total knee in the past complaining of left hip pain for three months. It is lateral and it is buttocks. She has minimal groin and thigh pain. She saw a chiropractor and the pain is worse with start-up. She can't lie on that side as she has pain, no assistive device. Past Medical History:See intake. She has some reflux, some sleep apnea, ongoing anxiety. She had a gastric bypass in the past.Physical Examination:She is 5'6 and weighs 230 pounds. Patient is alert, awake and oriented, appropriate mood and affect. She is ambulating without an assistive device. Her leg lengths are the same. Her knees look benign with motion 0-120 bilaterally. Her hips move through full range of motion bilaterally with no pain. She has no flip or straight leg raise. She is very tender directly over the trochanteric bursa on palpation. Her SI joint also has some tenderness.Imaging:X-rays: AP pelvis and AP and lateral of the left hips were ordered, obtained and interpreted by me in the office today for pain and do not show any arthritic change. She has a slight coxa vera otherwise, unremarkable.Impression:Although some of this may be related to her SI joint and her low back, I think the main issue is probably trochanteric bursitis of her left hip. I have given her the trochanteric direct pressure talk, asked her to do the trochanteric rolls and suggested iliotibial band stretches and we will see how that works. If symptoms are partially relieved, we are done and if not, trochanteric bursa injection may be in order. Plan X-Ray I Hip-Uni Pelvis - 2 or 3 views (XRays were ordered, obtained and interpretedtoday in the office. Indication: pain/dysfunction.); Status:Complete; Done: [id number] Perform:SOS11; Due:[id number]; Last Updated By:Missy Kyle; 02/12/2020 2:00:54 PM;Ordered; For:Pain of left hip; Ordered By:Leon Mota;Weight Bearing Status : Weight bearing Plan, Assessment and Recommendation(s) Follow up as needed, if not improving, or getting worse. Schedule next visit with: Leon Mota MD. Signatures Electronically signed by : Izzy Kurtz, ; Feb 15 2020 9:53AM EST Electronically signed by : Leon Mota M.D.; Feb 16 2020 7:37AM EST Name Value Range Interpretation Code Description Data Patricia rce(s) Supporting Document(s) ID Date Data Source [id number] 01/19/2020 04:27:00 PM EDT [facility] [address] [place] [address] [phone] NAME SEX PT STATUS ACCOUNT NUMBER HARLEY SHAY REG REF [id number] ORDERING PHYSICIAN LOCATION MEDICAL RECORD NO. Serenity KELTON Andrew RAD [id number] ATTENDING PHYSICIAN DATE OF DATE OF EXAM/TIME Serenity Becker NP 1965 01/19/20 / 1519 TYPE / EXAM 3D DIG MAMMO SCREEN BILAT REASON FOR EXAM Screening for breast cancer LAST CLINICAL BREAST EXAM: December 2019 FIVE YEAR RISK: 1.1% LIFETIME RISK: 7.2% FAMILY HISTORY OF BREAST CARCINOMA: Cousins COMPARISON: May 14, 2017 and April 04, 2016 2D bilateral digital mammogram in the CC and MLO projections was performed with supplemental 3D tomosynthesis of both breasts. FINDINGS: Craniocaudad and oblique lateral views of the breasts were obtained. The breasts are composed of scattered areas of fibroglandular density. There is no dominant mass, suspicious clustered microcalcification or architectural distortion. IMPRESSION: No mammographic evidence of m alignancy. Yearly screening recommended. OVERALL FINAL ASSESSMENT OF FINDINGS BI-RADS 1 - Negative OVERALL FINAL ASSESSMENT OF THE BREAST COMPOSITION Breast Density Classification: B Description: The breasts are composed of scattered areas of fibroglandular density. This mammogram was read with the assistance of M-Vu, an FDA-approved computer-aided detection system for mammography. Reported By Steve Carver MD on 01/19/20 1627 Signed By Steve Carver MD on 01/19/20 1631 Date Time CC: Steve Carver MD; Serenity MELARA Andrew Techn: PELBU Trans Dt/Tm: Trans by: DT Prt Dt/Tm: : Total DLP = 0.00 mGy-cm : Total Radiation Dose = 0.0000 mSv Lifetime Dose: 0 mSv Name Value Range Interpretation Code Description Data Patricia rce(s) Supporting Document(s) ID Date Data Source [id number] 01/19/2020 03:20:00 PM EDT [facility] [address] [place] [address] [phone] NAME SEX PT STATUS ACCOUNT NUMBER HARLEY SHAY REG REF [id number] ORDERING PHYSICIAN LOCATION MEDICAL RECORD NO. Serenity AGUILARP Andrew RAD [id number] ATTENDING PHYSICIAN DATE OF DATE OF EXAM/TIME AndrewSerenity TITLE CURATOR 1965 01/19/201442 TYPE / EXAM Bone density (DEXA) REASON FOR EXAM post menopausal Age: 54 years Evaluation was performed using a Dual Energy X-ray Absorption densitometer. FINDINGS: AP Spine BMD as determined from the AP Spine is 1.309g/cm2 with a T- score of 1.1 which is considered normal. Left Femur BMD as determined from the Left Femur Neck is 1.025g/cm2 with a T-Score of -0.1 which is considerednormal. Right Femur BMD as determined from the Right Femur Neck is 0.916g/cm2 with a T-score of -0.9 which is considered normal. IMPRESSION: Normal bone mineral density. 10-year Probability of Fracture: Major Osteoporotic: 5.6% Hip: 0.2% Note: * Mild to aggressive therapies are available in the form of Hormone replacement therapy (HRT), Bisphosphonates, Calcitonin, and SERMs. Additionally, all patients should ensure an adequate intake of dietary calcium (1200mg/d) and vitamin D (400-800 IU daily). * People with diagnosed cases of osteoporosis or osteopenia should be regularly tested for bone mineral density. For patients eligible for Medicare, routine testing is allowed once every 2 years. Testing frequency can be increased for patients who have rapidly progressing disease, or for those who are receiving medical therapy to restore bone mass. Reported By Steve Carver MD on 01/19/20 1520 Signed By Steve Carver MD on 01/19/20 1521 Date Time CC: Steve Carver MD; Serenity MELARA Andrew Techn: ELY Trans Dt/Tm: Trans by: DT Prt Dt/Tm: [id number]: Total DLP = 0.00 mGy-cm Fluoroscopy Time (in secs): Name Value Range Interpretation Code Description Data Patricia rce(s) Supporting Document(s) ID Date Data Source [id number] 01/07/2020 09:11:00 AM EDT [facility] Patient Name: HARLEY SHAY OB: 1965 Sex: F Pt Unit #: [id number] Location:[facility] Provider: Visit Date/Time: 01/07/20 Primary Insurance: [place] [place] Secondary Insurance: Self Pay Intake Vital Signs 01/07/20 09:12 Current Height 5 ft 6 in Current Weight 221 lb Weight Measurement Method Standing Scale BMI 35.6 BP 130/70 Blood Pressure Location Lt brachial Position Sitting Respiration 18 Pulse 54 L Pulse Strength Normal Pulse Source Pulse Oximeter Pulse Oximetry (%) 99 Oxygen Delivery Method room air Intake Visit Reasons: Annual Physical Nurse Note: pt is here today for annual pe Is patient in pain?: No Allergies No Known Drug Allergies Allergy (Unverified 04/11/16 15:55) Medications chlorthalidone 25 mg PO .mwf citalopram 40 mg (2 x 20 mg) PO DAILY lisinopril 20 mg PO QDAY pantoprazole 40 mg PO QDAY spironolactone 25 mg PO QDAY Fall Risk History of falls: Yes (fell outside december 25 ) Ambulatory Aid:: None Gait/Transferring:: Normal Medications:: Antihypertensives PHQ-2/9 Over the last 2 weeks, how often have you been bothered by any of the following problems? 1. Little interest or pleasure in doing things: not at all 2. Feeling down, depressed, or hopeless: not at all Total score: 0 HIV Testing Offer - ages 13-64 Requirement for HIV testing offer been met?: Declines today. Pretest education received and acknowledged Hep C Testing Offered: Yes Hep C Requirement met: Refuses today Coronavirus Screening Screening Have you traveled outside of [facility] or [facility] in the last 14 days.: No Has patient experienced coronavirus symptoms: No [facility] Medical History Anxiety History of gastric bypass Sleep apnea Surgical History History of - surgery ( 2000) History of gastric bypass ( 2011) Status post carpal tunnel release Family History Mother Adenoid cystic carcinoma of oropharynx Father Carcinoma of colon Brother Adenoid cystic carcinoma of oropharynx Brother No problems noted. Sister Heart disease Chronic obstructive lung disease Sister Chronic obstructive lung disease Social History Does the Patient have a Healthcare Proxy: Yes ( RAMON) Does Patient have a DNR?: Yes Does Patient have a Living Will?: Yes HPI Additional HPI HPI Details: HERE FOR PE. FEELS WELL. SEE'S ONCOLOGY YEARLY FOR PERSISTANT LEUKOPENIA. NEEDS MED REFILLS. DOES NOT WANT PAP TODAY. WILL SCHEDULE THAT FOR ANOTHER DAY. Review of Systems Const All systems reviewed are unremarkable except as noted in HPI and below Reports system reviewed and no additional complaints, except as documented Eyes Reports system reviewed and no additional complaints, except as documented ENT Reports system reviewed and no additional complaints, except as documented Card Reports system reviewed and no additional complaints, except as documented Resp Reports system reviewed and no additional complaints, except as documented GI Reports system reviewed and no additional complaints, except as documented Genitourinary: Reports system reviewed and no additional complaints, except as documented Musc Reports system reviewed and no additional complaints, except as documented Skin/Breast Reports system reviewed and no additional complaints, except as documented Neuro Reports system reviewed and no additional complaints, except as documented Psych Reports system reviewed and no additional complaints, except as documented Endo Reports system reviewed and no additional complaints, except as documented Jeferson/Lymph Reports system reviewed and no additional complaints, except as documented Aller/Immun Reports system reviewed and no additional complaints, except as documented Exam Const General: cooperative, healthy appearing, no acute distress, well developed and well groomed Nutritional Appearance: well nourished Orientation: alert, awake and oriented x3 HENMT Head: normal to inspection and normocephalic Ears: hearing grossly normal bilaterally, external ears normal, TM's normal bilaterally, EAC's normal and no periauricular adenopathy General nose exam: external nose normal, nares normal, no nasal polyps, septum normal and no nasal discharge Face and sinus: normal facial exam and sinuses nontender Mouth: oral mucosae normal, lip normal, tongue normal, oropharynx normal and moist mucous membranes Throat: posterior oropharynx normal Eyes General: appearance normal, both eyes and all related structures Periorbital: periorbital findings normal Eyelids: eyelids normal Conjunctivae: conjunctivae normal Sclera: sclerae normal Pupils: PERRL EOM: EOM intact bilaterally Direct ophthalmoscopy: normal light reflex Neck Neck: normal visual inspection, full ROM, no lymphadenopathy and supple Neck mass: No Thyroid: thyroid normal Carotids: normal carotid upstroke Chest Chest: normal inspection of the chest Resp Effort Inspection: normal respiratory effort Auscultation: clear to auscultation bilaterally Percussion: percussion normal Cardio Rate: regular rate Rhythm: regular rhythm Heart Sounds: S1 normal and S2 normal Pulses: normal peripheral pulses GI Inspection: Yes normal to inspection Palpation: soft and no hepatosplenomegaly Percussion: normal to percussion Auscultation: normal bowel sounds General: No CVA tenderness Musc Cervical Spine: normal cervical lordosis and cervical ROM normal Thoracic/Lumbar Spine: thoracic and lumbar spine normal to inspection, thoraco-lumbar ROM normal andstraight leg raise negative bilaterally Pelvis: no pain with anterior- posterior compression and no pain with lateral compression Skin Lesions: no lesions Rashes: no rashes Hair: normal Nails: normal Neuro General: patient alert, patient awake, patient oriented x3, gait normal, moves all extremities and normal light touch, pain and propioception Cranial Nerves: CN's II-XII intact bilaterally Cognition: normal cognition Speech: speech normal Gait: normal gait Motor: muscle tone normal throughout and strength 5/5 throughout Sensory Exam: no sensory deficits noted Extrem General: normal to inspection, full ROM, capillary refill normal and muscle atrophy Psych Appearance: grossly normal and well kempt Mental Status: mental status grossly normal Speech and Movement: speech and movement normal Mood: congruent mood Affect: normal affect Attitude: cooperative Thought Process: normal Thought Content: normal Insight: insight good Judgment: judgment good Assessment Plan Assessment Plan (1) Encounter for annual health examination: Code(s): Z00.00 - Encounter for general adult medical examination without abnormal findings (2) HTN (hypertension), benign: Status: Acute Code(s): I10 - Essential (primary) hypertension SNOMED Code(s): 75205353 Category: Medical (3) Depression: Status: Acute Code(s): F32.9 - Major depressive disorder, single episode, unspecified SNOMED Code(s): 69396426 Category: Medical Qualifiers: Active/Remission status: in partial remission Depression Type: major depressive disorder Major depression recurrence: recurrent Qualified Code(s): F33.41 - Major depressive disorder, recurrent, in partial remission Plan - Serenity Becker, TITLE CURATOR: RTC 3 MONTHS Orders Other Medications: Refilled: citalopram 40 mg (2 x 20 mg) PO DAILY 180 tabs 1RF lisinopril 20 mg PO QDAY 90 tabs 0RF pantoprazole 40 mg PO QDAY 90 tabs 0RF spironolactone 25 mg PO QDAY 90 tabs 0RF Other Orders: Orders: 3D DIG MAMMO SCREEN BILAT Today Z12.31 Bone density (DEXA) Today N95.1 CMP Today Z09 LIPID PANEL 1 Month E78.5 TSH Today Z09 CBC W AUTO DIFF Today Z09 Cgpl-[id number]-HxT-2 IgM/IgG 1 Month R05 Electronically Signed By: <Electronically signed by Serenity Becker NP> Date/Time Signed: 01/07/20 0956 Name Value Range Interpretation Code Description Data Patricia rce(s) Supporting Document(s) ID Date Data Source [id number] 09/04/2019 09:52:00 AM EDT [facility] Patient Name: HARLEY SHAY Bree Del Toro OB: 1965 Sex: F Pt Unit #: [id number] Location:[facility] Provider: Visit Date/Time: 09/04/19 Primary Insurance: BC/BS [facility] Secondary Insurance: Self Pay Intake Vital Signs 09/04/19 09:53 Current Height 5 ft 6 in Current Weight 236 lb Weight Measurement Method Standing Scale BMI 38.0 BP 120/80 Blood Pressure Location Rt brachial Position Sitting Respiration 16 Pulse 55 L Temp 97.7 F Temp Source Oral Intake Visit Reasons: Ear Complaint Nurse Note: 54 year old female here for c/o of her right ear feeling plugged and left ear is starting to hurt. Saw Serenity Becker on 09-01-19, and was seen at Urgent Care on Saturday in [place]. Gait is off. Picture Booker Required: No Accompanied by: Self / Same as Patient Is patient in pain?: Yes (right side of face) Pain scale (1-10): 5 Allergies No Known Drug Allergies Allergy (Unverified 04/11/16 15:55) Fall Risk History of falls: No Ambulatory Aid:: None Gait/Transferring:: Normal Medications:: Antihypertensives HIV Testing Offer - ages 13-64 Requirement for HIV testing offer been met?: Declines today. Pretest education received and acknowledged Do you need a note to return Do you need a note to return to daycare/school/sports/work: No PFSH Medical History (Updated 09/04/19 @ 14:43 by Tamie Mayorga DO) Anxiety History of gastric bypass Sleep apnea Surgical History (Updated 12/16/18 @ 11:53 by [employer] [place]) History of - surgery ( 2000) History of gastric bypass ( 2011) Status post carpal tunnel release Family History Mother Adenoid cystic carcinoma of oropharynx Father Carcinoma of colon Brother Adenoid cystic carcinoma of oropharynx Brother No problems noted. Sister Heart disease Chronic obstructive lung disease Sister Chronic obstructive lung disease Social History Does the Patient have a Healthcare Proxy: Yes ( RAMON) Does Patient have a DNR?: Yes Does Patient have a Living Will?: Yes HPI Additional HPI HPI Details: 54 y/o female for right ear pain, feels plugged , saw urgent care 5 days ago on antibiotics, saw TITLE CURATOR saturday and changed to augmentin, no improvement, stuffy nose, improved cough ,denies postnasal drip, feeling tired, denies h/o sinusitis, denies h/o ear problems in the past, denies sick contact , denies travel, work [employer] not three meals per day, does not sleep hours per day has not used cpap lately no other complaints Ear Complaint (Adult) * Associated symptoms: Reports nasal congestion (stuffy nose) Review of Systems Const Reports system reviewed and no additional complaints, except as documented Eyes Reports system reviewed and no additional complaints, except as documented ENT Reports otalgia (right ear pain), Reports nasal congestion (stuffy nose) and Denies sinus pressure Card Reports system reviewed and no additional complaints, except as documented Resp Reports system reviewed and no additional complaints, except as documented GI Reports system reviewed and no additional complaints, except as documented Exam Const General: cooperative, healthy appearing, comfortable and no acute distress Nutritional Appearance: obese Orientation: alert, awake and oriented x3 HENMT Head: normocephalic and atraumatic Ears: hearing grossly normal bilaterally, external ears normal and TM's normal bilaterally General nose exam: external nose normal, nares normal and nasal mucous membranes and turbinates normal Face and sinus: normal facial exam and sinuses nontender Mouth: other (right jaw pain with opening wide and thrusting jaw forward) Throat: posterior oropharynx normal Eyes General: appearance normal, both eyes and all related structures Visual Godoy: normal visual godoy by confrontation Alignment and Position: alignment normal Periorbital: periorbital findings normal Eyelids: eyelids normal EOM: EOM intact bilaterally Neck Neck: normal visual inspection, full ROM, no lymphadenopathy, trachea midline and supple Neck mass: No Thyroid: thyroid normal Resp Effort Inspection: normal respiratory effort Auscultation: clear to auscultation bilaterally Cardio Jugular venous pressure: no JVD Palpation: no rmal PMI Rate: regular rate Rhythm: regular rhythm Heart Sounds: S1 normal and S2 normal Assessment Plan Assessment Plan (1) Ear Problem: Code(s): H93.90 - Unspecified disorder of ear, unspecified ear Qualifiers: Laterality: right Qualified Code(s): H93.91 - Unspecified disorder of right ear Plan - Tamie Mayorga DO: continue augmentin antibiotic begin probiotics if no improvement then go to ENT for possible CT imaging (2) TMJ dysfunction: Status: Acute Comment: right side Code(s): M26.609 - Unspecified temporomandibular joint disorder, unspecified side SNOMED Code(s): 12623252 Category: Medical Plan - Tamie Mayorga DO: ibuprofen 400mg po q 8 hours prn for pain - take with food avoid big bites avoid shell fish Electronically Signed By: <Electronically signed by Tamie Mayorga DO> Date/Time Signed: 09/04/19 1444 Name Value Range Interpretation Code Description Data Patricia rce(s) Supporting Document(s) ID Date Data Source [id number] 09/01/2019 09:58:00 AM EDT [facility] Patient Name: OSMANY SHAYRosanne Del Toro OB: 1965 Sex: F Pt Unit #: [id number] Location:[facility] Provider: Visit Date/Time: 09/01/19 Primary Insurance: BC/BS [facility] Secondary Insurance: Self Pay Intake Vital Signs 09/01/19 09:58 Current Height 5 ft 6 in Current Weight 236 lb Weight Measurement Method Standing Scale BMI 38.0 BP 120/80 Blood Pressure Location Lt brachial Position Sitting Respiration 18 Pulse 68 Pulse Strength Normal Pulse Source Pulse Oximeter Temp 97.7 F Temp Source Oral Pulse Oximetry (%) 97 Oxygen Delivery Method room air Intake Visit Reasons: Cold symptoms (adult) Nurse Note: pt is here today for congestion headache body aches right ear pain pt went to urgent care in [place] on saturday and was given keflex pt states she feels worse and since then her ear started hurting pt states she had fever sat to saturday of 102 Is patient in pain?: Yes (right ear pain headache ) Pain scale (1-10): 5 Allergies No Known Drug Allergies Allergy (Unverified 04/11/16 15:55) HIV Testing Offer - ages 13-64 HIV testing Offer: Yes Requirement for HIV testing offer been met?: Declines today. Pretest education received and acknowledged Hep C Testing Offered: Yes Hep C Requirement met: Refuses today [facility] Medical History (Updated 09/01/19 @ 10:24 by Serenity Becker) Anxiety History of gastric bypass Sleep apnea Surgical History (Updated 12/16/18 @ 11:53 by [employer] [place]) History of - surgery ( 2000) History of gastric bypass ( 2011) Status post carpal tunnel release Family History Mother Adenoid cystic carcinoma of oropharynx Father Carcinoma of colon Brother Adenoid cystic carcinoma of oropharynx Brother No problems noted. Sister Heart disease Chronic obstructive lung disease Sister Chronic obstructive lung disease Social History Does the Patient have a Healthcare Proxy: Yes ( RAMON) Does Patient have a DNR?: Yes Does Patient have a Living Will?: Yes HPI URI History of Present Illness Details: COUGH, EAR ACHE, SORE THROAT, NASAL CONGESTION, GREEN DISCHARGE, SINUS HEADACHE, FACIAL PAIN, FEVER A FEW DAYS AGO BUT NOT TODAY. Current symptoms: Reports fever(s), cough, sore throat, congestion and sinus pain Home treatments: NSAID Able to tolerate fluids by mouth: Yes Associated symptoms: Reports chills, myalgias, headache(s) and ear or mastoid pain Review of Systems Const Reports chills, Reports fever(s) and Reports headache(s) ENT Reports otalgia, Reports facial pain, Reports headache(s), Reports nasal congestion, Reports sinus pain and Reports sore throat Card Reports system reviewed and no additional complaints, except as documented Resp Reports cough GI Details: APPETITE DECREASED. ADEQUATE FLUID INTAKE Reports system reviewed and no additional complaints, except as documented Musc Reports myalgias Details: BODY ACHES Skin/Breast Reports system reviewed and no additional complaints, except as documented Neuro Reports system reviewed and no additional complaints, except as documented and Reports headache(s) Psych Reports system reviewed and no additional complaints, except as documented Endo Reports system reviewed and no additional complaints, except as documented Jeferson/Lymph Reports system reviewed and no additional complaints, except as documented Exam Const General: cooperative, comfortable and well hydrated Nutritional Appearance: average body habitus Orientation: alert and oriented x3 HENMT Head: normal to inspection Ears: TM abnormal dull and erythematous General nose exam: mucous membranes and turbinates abnormal erythematous Face and sinus: sinus tenderness Throat: posterior oropharynx abnormal erythema Neck Neck: normal visual inspection Neck mass: No Thyroid: thyroid normal Lymphatic: no lymphadenopathy noted Resp Effort Inspection: normal respiratory effort Auscultation: rhonchi Cardio Rate: regular rate Rhythm: regular rhythm GI Inspection: Yes normal to inspection Palpation: soft Auscultation: normal bowel sounds General: CVA tenderness Musc Cervical Spine: normal cervical lordosis Thoracic/Lumbar Spine: thoracic and lumbar spine normal to inspection Skin Lesions: no lesions Rashes: no rashes Neuro General: alert and oriented x3 Cranial Nerves: CN's II-XII intact bilaterally Cognition: normal cognition Gait: normal gait Motor: muscle tone normal throughout Sensory Exam: no sensory deficits noted Extrem General: normal to inspection Assessment Plan Assessment Plan (1) Common cold: Code(s): J00 - Acute nasopharyngitis [common cold] (2) Otitis media: Status: Acute Code(s): H66.90 - Otitis media, unspecified, unspecified ear SNOMED Code(s): 43452220 Category: Medical (3) Bronchitis: Status: Acute Code(s): J40 - Bronchitis, not specified as acute or chronic SNOMED Code(s): 84712881 Category: Medical Orders Other Medications: New: amoxicillin- pot clavulanate 875-125 mg 1 tab PO BID 10 days 20 tabs 0RF Electronically Signed By: <Electronically signed by Serenity Becker > Date/Time Signed: 09/01/19 1027 Name Value Range Interpretation Code Description Data Patricia rce(s) Supporting Document(s) ID Date Data Source [id number] 07/20/2019 01:10:00 PM [facility] Patient Name: HARLEY SHAY OB: 1965 Sex: F Pt Unit #: [id number] Location:[facility] Provider: Visit Date/Time: 07/20/19 Primary Insurance: BC/BS [facility] Secondary Insurance: Self Pay Intake Vital Signs 07/20/19 13:10 Current Height 5 ft 6 in Current Weight 232 lb 0.3 oz Weight Measurement Method Standing Scale BMI 37.4 BP 110/60 Blood Pressure Location Lt brachial Position Sitting Respiration 18 Pulse 54 L Pulse Strength Normal Pulse Source Pulse Oximeter Temp 97.7 F Temp Source Oral Pulse Oximetry (%) 100 Oxygen Delivery Method room air Intake Visit Reasons: Depression Nurse Note: pt ishere today switching from dr farley office to follow serenity becker pt is here today for depression follow up Is patient in pain?: No Allergies No Known Drug Allergies Allergy (Unverified 04/11/16 15:55) Medications chlorthalidone 25 mg PO .mwf citalopram 40 mg (2 x 20 mg) PO DAILY lisinopril 20 mg PO QDAY pantoprazole 40 mg PO QDAY spironolactone 25 mg PO QDAY Fall Risk History of falls: No Ambulatory Aid:: None Gait/Transferring:: Normal Medications:: Antihypertensives PHQ-2/9 Over the last 2 weeks, how often have you been bothered by any of the following problems? 1. Little interest or pleasure in doing things: not at all 2. Feeling down, depressed, or hopeless: not at all Total score: 0 3. Trouble falling or staying asleep, or sleeping too much: nearly every day 4. Feeling tired or having little energy: more than half the days Source: Developed by Drs. Tr Pantoja, Marion Ambrose, Drake Freeman and colleagues, with an educational gabrielle from [employer]. [facility] Medical History (Updated 07/20/19 @ 13:20 by Serenity Becker) Anxiety History of gastric bypass Sleep apnea Surgical History (Updated 12/16/18 @ 11:53 by [employer] [place]) History of - surgery ( 2000) History of gastric bypass ( 2011) Status post carpal tunnel release Family History Mother Adenoid cystic carcinoma of oropharynx Father Carcinoma of colon Brother Adenoid cystic carcinoma of oropharynx Brother No problems noted. Sister Heart disease Chronic obstructive lung disease Sister Chronic obstructive lung disease Social History Does the Patient have a Healthcare Proxy: Yes ( RAMON) Does Patient have a DNR?: Yes Does Patient have a Living Will?: Yes HPI Depression RECHECK. NEEDS MED REFILLS. FEELS WELL. SAW DR. CUTLER. HAS F/U IN 6 MONTHS TO DISCUSS PACEMAKER. 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 Energy level: baseline Appetite: unchanged Feelings of guilt, worthlessness, or hopelessness: No Concentration: baseline Psychomotor: baseline Thoughts of harming yourself: No Thoughts of ending your life: No Thoughts of harming anyone: No Review of Systems Const All systems reviewed are unremarkable except as noted in HPI and below Reports system reviewed and no additional complaints, except as documented ENT Reports system reviewed and no additional complaints, except as documented Card Reports system reviewed and no additional complaints, except as documented Resp Reports system reviewed and no additional complaints, except as documented GI Reports system reviewed and no additional complaints, except as documented Reports system reviewed and no additional complaints, except as documented Musc Reports system reviewed and no additional complaints, except as documented Skin/Breast Reports system reviewed and no additional complaints, except as documented Neuro Reports system reviewed and no additional complaints, except as documented Psych Reports system reviewed and no additional complaints, except as documented Endo Reports system reviewed and no additional complaints, except as documented Jeferson/Lymph Reports system reviewed and no additional complaints, except as documented Aller/Immun Reports system reviewed and no additional complaints, except as documented Exam Const General: cooperative and comfortable Nutritional Appearance: average body habitus Orientation: alert and oriented x3 HENMT Head: normal to inspection Ears: hearing grossly normal bilaterally Throat: posterior oropharynx normal Neck Neck: normal visual inspection Neck mass: No Thyroid: thyroid normal Lymphatic: no lymphadenopathy noted Resp Effort Inspection: normal respiratory effort Auscultation: clear to auscultation bilaterally Cardio Rate: regular rate Rhythm: regular rhythm GI Palpation: soft Percussion: normal to percussion Auscultation: normal bowel sounds General: No CVA tenderness Musc Cervical Spine: normal cervical lordosis Thoracic/Lumbar Spine: thoracic and lumbar spine normal to inspection Skin Lesions: no lesions Rashes: no rashes Neuro General: alert and oriented x3 Cranial Nerves: CN's II-XII intact bilaterally Cognition: normal cognition Speech: speech normal Gait: normal gait Motor: muscle tone normal throughout Sensory Exam: no sensory deficits noted Extrem General: normal to inspection Assessment Plan Assessment Plan (1) Depression: Code(s): F32.9 - Major depressive disorder, single episode, unspecified (2) HTN (hypertension), benign: Status: Acute Code(s): I10 - Essential (primary) hypertension SNOMED Code(s): 60539165 Category: Medical Plan - Serenity Andrew: Patient education: Diet: Encouraged to adjust caloric intake to maintain ideal body weight, to reduce intake of dietarysaturated fat and cholesterol, to limit sodium intake by avoiding high sodium foods and not adding table salt, and to maintain adequate dietary potassium, preferably from fresh fruits and vegetables. Exercise: Stressed the importance of regular exercise 30-45 minutes most days of the week. Follow-up: In 3-6 months. Orders Other Medications: New: citalopram 40 mg (2 x 20 mg) PO DAILY 180 tabs 1RF Instructions: DASH Eating Plan (GEN) Hypertension (GEN) Electronically Signed By: <Electronically signed by Serenity Becker > Date/Time Signed: 07/20/19 3365 Name Value Range Interpretation Code Description Data Patricia rce(s) Supporting Document(s) Procedure Social History Code Duration Value Status Description Data Source(s ) 04/26/2020 07:15:00 AM EST Former smoker completed Former smoker [facility] Smoking 04/26/2020 07:15:00 AM EST Former smoker completed Former smoker [facility] Vital Signs ID Date Data Source UNK Name Value Range Interpretation Code Description Data Source(s) Body surface area Derived from formula 2.09 m2 2.09 m2 [facility] ([facility]) Body mass index (BMI) [Ratio] 35.8 kg/m2 35.8 k g/m2 [facility] ([facility]) Body height 66 [in_i] 66 [in_i] [facility] 5'6" Body weight 100.699 kg 100.699 kg [facility] ([facility]) Body weight 222.00 [lb_av] 222.00 [lb_av] [facility] ([facility]) Body temperature 97.8 [degF] 97.8 [degF] [facility] ([facility]) Heart rate 51 /min 51 /min [facility] Diastolic blood pressure 71 mm[Hg] 71 mm[Hg] [facility]) Systolic blood pressure 139 mm[Hg] 139 mm[Hg] M [facility] Body surface area Derived from formula 2.11 m2 2.11 m2 [facility] ([facility]) Body mass index (BMI) [Ratio] 36.5 kg/m2 36.5 k g/m2 [facility] ([facility]) Body height 66 [in_i] 66 [in_i] [facility] ([facility]) 5'6" Body weight 102.514 kg 102.514 kg [facility] ([facility]) Body weight 226.00 [lb_av] 226.00 [lb_av] [facility] ([facility]) Oxygen saturation in Arterial blood by Pulse oximetry 99 % 99 % [facility] ([facility]) Respiratory rate 19 /min 19 /min [facility] ( [facility]) Body temperature 97.3 [degF] 97.3 [degF] [facility] Heart rate 47 /min 47 /min [facility] ([facility]) Diastolic blood pressure 77 mm[Hg] 77 mm[Hg] [facility] ([facility]) Systolic blood pressure 133 mm[Hg] 133 mm[Hg] M [facility] Body surface area Derived from formula 2.10 m2 2.10 m2 [facility] ([facility], ) Body weight 102.060 kg 102.060 kg [facility], ) [place] body weight 130 [lb_av] 130 [lb_av] [facility] ([facility], ) Body mass index (BMI) [Ratio] 36.3 kg/m2 36.3 k g/m2 [facility] ([facility]) Body weight 225.00 [lb_av] 225.00 [lb_av] [facility] ([facility]) Body height 66 [in_i] 66 [in_i] [facility] ([facility]) 5'6" Diastolic blood pressure 68 mm[Hg] 68 mm[Hg] [facility] ([facility]) Systolic blood pressure 124 mm[Hg] 124 mm[Hg] [facility] ([facility]) Body surface area Derived from formula 2.11 m2 2.11 m2 [facility] ([facility]) Body mass index (BMI) [Ratio] 36.8 kg/m2 36.8 k g/m2 [facility] ([facility]) Body height 66 [in_i] 66 [in_i] [facility] ([facility]) 5'6" Body weight 103.421 kg 103.421 kg [facility] ([facility]) Body weight 228.00 [lb_av] 228.00 [lb_av] [facility] ([facility]) Body temperature 97.3 [degF] 97.3 [degF] [facility] ([facility]) Heart rate 50 /min 50 /min [facility] ([facility]) Diastolic blood pressure 65 mm[Hg] 65 mm[Hg] [facility] ([facility]) Systolic blood pressure 117 mm[Hg] 117 mm[Hg] [facility] ([facility]) Body surface area Derived from formula 2.09 m2 2.09 m2 [facility] ([facility]) Body mass index (BMI) [Ratio] 35.7 kg/m2 35.7 k g/m2 [facility] ([facility]) Body height 66 [in_i] 66 [in_i] [facility] ([facility]) 5'6" Body weight 100.302 kg 100.302 kg [facility] ([facility]) Body weight 221.12 [lb_av] 221.12 [lb_av] [facility] ([facility]) Oxygen saturation in Arterial blood by Pulse oximetry 99 % 99 % [facility] ([facility]) Respiratory rate 16 /min 16 /min [facility] ( [facility]) Body temperature 97.4 [degF] 97.4 [degF] [facility] ([facility]) Heart rate 55 /min 55 /min [facility] ([facility]) Diastolic blood pressure 79 mm[Hg] 79 mm[Hg] [facility] Systolic blood pressure 132 mm[Hg] 132 mm[Hg] [facility] Body surface area Derived from formula 2.11 m2 2.11 m2 [facility] ([facility]) Body mass index (BMI) [Ratio] 36.8 kg/m2 36.8 k g/m2 [facility] ([facility]) Body height 66 [in_i] 66 [in_i] [facility] ([facility]) 5'6" Body weight 103.421 kg 103.421 kg [facility] ([facility]) Body weight 228.00 [lb_av] 228.00 [lb_av] [facility] ([facility]) Oxygen saturation in Arterial blood by Pulse oximetry 98 % 98 % [facility] ([facility]) Respiratory rate 18 /min 18 /min [facility] Body temperature 98.2 [degF] 98.2 [degF] [facility] ([facility]) Heart rate 68 /min 68 /min [facility] ([facility]) Diastolic blood pressure 72 mm[Hg] 72 mm[Hg] [facility] ([facility]) Body surface area 2.11 m2 2.11 m2 [facility] Systolic blood pressure 126 mm[Hg] 126 mm[Hg] [facility] Body surface area Derived from formula 2.13 m2 2.13 m2 MEDENT ([facility], ) Body weight 105.235 kg 105.235 kg [facility] ([facility], ) [place] body weight 130 [lb_av] 130 [lb_av] MEDEN T ([facility], ) Body mass index (BMI) [Ratio] 37.4 kg/m2 37.4 k g/m2 AYALA ([facility], ) Body weight 232.00 [lb_av] 232.00 [lb_av] RUSS T ([facility], ) Body height 66 [in_i] 66 [in_i] [facility] ([facility], ) 5'6" Diastolic blood pressure 68 mm[Hg] 68 mm[Hg] [facility] Systolic blood pressure 112 mm[Hg] 112 mm[Hg] Vamshi PURI ([facility], ) ID Date Data Source [id number] 08/04/2020 03:06:31 PM EST [facility] Name Value Range Interpretation Code Description Data Source(s) WEIGHT RECORDED 225.00 pounds 225.00 pounds [facility] Height 66 Inches 066 Inches [facility]
--- OUTSIDE RECORDS SUMMARY | 2020-08-15 11:51 | CCD | Continuity of Care Document ---
Author Julissa Lovelace M.D. 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 Name Role Phone Serenity Morales AUTM [phone] Bandar Diaz AUTM [phone] Problems Active Problems Provider Date Essential hypertension Bandar Diaz MD Onset: 05/06/2020 Chronic cholecystitis Bandar Diaz MD Onset: 05/10/2020 Abdominal pain Bandar Diaz MD Onset: 05/10/2020 Social History Type Date Description Comments Sex Unknown Tobacco Use Start: Unknown End: Unknown Quit ETOH Use Occasionally consumes alcohol Tobacco Use [...] Available Vital Signs Date Vital Result Comment 06/02/2020 3:04pm BP Systolic 117 mmHg BP Diastolic 65 mmHg Heart Rate 50 /min Body Temperature 97.3 F Weight 228.00 lb Weight 103.421 kg Height 66 inches 5'6" BMI (Body Mass Index) 36.8 kg/m2 BSA (Body Surface Area) 2.11 m2 05/10/2020 11:07am BP Systolic 132 mmHg BP Diastolic 79 mmHg Heart Rate 55 /min Body Temperature 97.4 F Respiratory Rate 16 /min O2 % BldC Oximetry 99 % Weight 221.12 lb Weight 100.302 kg Height 66 inches 5'6" BMI (Body Mass Index) 35.7 kg/m2 BSA (Body Surface Area) 2.09 m2 Results Test Acquired Date Facility Test Result H/L Range Note Xray 05/18/2020 [facility] [address] [place] [address] [phone] US Pelvic <pending> Xray 05/18/2020 [facility] nter ( )- - MRI Abdomen W/O Contrast <pending> Procedures Description No Information Available Medical Devices Description No Information Available Encounters Type Date Location Provider Dx Diagnosis Office Visit 06/02/2020 2:30p [facility] Blaine Phan M.D. Z71.9 Counseling, unspecified Assessments Date Code Description Provider 06/02/2020 Z71.9 Counseling, unspecified Blaine Parikh M.D. 05/10/2020 K81.1 Chronic cholecystitis Bandar valle MD 05/10/2020 R10.30 Lower abdominal pain, unspecifie d Bandar Diaz MD Plan of Treatment Future Appointment(s):* 06/15/2020 8:15 am - Urology Resource Schedule at [facility] 06/02/2020 - Blaine Parikh M.D.* Z71.9 Counseling, unspecified * All * New Medication:* Cytotec 200 mcg - 1 tabs intravaginally every 12 hours x 2days * Comments:* Patient is instructed to take Cytotec 200 mcg 1 tabs intravaginally every 12 hours x2 days before endometrial biopsy which will help to dilate the cervix and ease the passage of biopsy pipelle. * Follow up:* We will call the patient with appointment for endometrial biopsy. Functional Status Description No Information Available Mental Status Description No Information Available Referrals Refer to Reason for Referral Status Appt Date Bandar Diaz MD Abnormal CT Scan, Thickening of Bladderwall C reated [address] [place] [id number] [phone] Bandar Diaz MD Abnormal Ct scan 5cm cyst 2 cm Fibroid Create d [address] [place] [id number] [phone]
--- NOTE | 2020-08-15 13:26 | ROOR ---
Patient Name: Julissa Shay Procedure Date: 08/15/2020 1:03 PM Date of : 1965 Age: 55 Room: [facility] Gender: Female Note Status: Finalized Procedure: Upper GI endoscopy Indications: Heartburn Providers: Bandar HERRERA MD Referring MD: Serenity Morales NP Requesting Provider: Medicines: Monitored Anesthesia Care Complications: No immediate complications. Procedure: Pre-Anesthesia Assessment: - The heart rate, respiratory rate, oxygen saturations, blood pressure, adequacy of pulmonary ventilation, and response to care were monitored throughout the procedure. The Endoscope was introduced through the mouth, and advanced to the second part of duodenum. The upper GI endoscopy was accomplished without difficulty. The patient tolerated the procedure well. Findings: A medium-sized hiatal hernia was present. Evidence of a sleeve gastrectomy was found in the gastric fundus and in the gastric body. This was characterized by healthy appearing mucosa. The exam was otherwise without abnormality. Impression: - Medium-sized hiatal hernia. (z line at 30 cm) - A sleeve gastrectomy was found, characterized by healthy appearing mucosa. - The examination was otherwise normal. - No specimens collected. Recommendation: - Observe patient's clinical course. - Continue present medications. - Follow an antireflux regimen. Procedure Code(s): --- Professional --- 14469, Esophagogastroduodenoscopy, flexible, transoral; diagnostic, including collection of specimen(s) by brushing or washing, when performed (separate procedure) Diagnosis Code(s): --- Professional --- R12, Heartburn Z98.84, Bariatric surgery status K44.9, Diaphragmatic hernia without obstruction or gangrene CPT copyright 2019 [employer]. All rights reserved. The codes documented in this report are preliminary and upon gameplay programmer review may be revised to meet current compliance requirements. Bandar Herrera MD Bandar HERRERA MD 08/15/2020 1:26:18 PM Electronically signed by Bandar HERREAR MD Number of Addenda: 0 Note Initiated On: 08/15/2020 1:03 PM Estimated Blood Loss: Estimated blood loss: none.
[2020-08-15] MEDS ORDERED: propofoL 200 MG/20 ML VIAL As Ordered ONE (13:32)
--- NOTE | 2020-08-15 13:48 | ROOR ---
Patient Name: Julissa Shay Procedure Date: 08/15/2020 1:01 PM Date of : 1965 Age: 55 Room: [facility] Gender: Female Note Status: Finalized Procedure: Colonoscopy Indications: High risk colon cancer surveillance: Personal history of colonic polyps, Family history of colon cancer in a first-degree relative before age 60 years Providers: Bandar HERRERA MD Referring MD: Serenity Morales NP Requesting Provider: Medicines: Monitored Anesthesia Care Complications: No immediate complications. Procedure: Pre-Anesthesia Assessment: - The heart rate, respiratory rate, oxygen saturations, blood pressure, adequacy of pulmonary ventilation, and response to care were monitored throughout the procedure. The Colonoscope was introduced through the anus and advanced to the terminal ileum, with identification of the appendiceal orifice and IC valve. The colonoscopy was performed without difficulty. The patient tolerated the procedure well. The quality of the bowel preparation was good. Findings: Skin tags were found on perianal exam. A 10 mm polyp was found in the mid descending colon. The polyp was flat. The polyp was removed with a cold snare. Resection and retrieval were complete. The exam was otherwise without abnormality on direct and retroflexion views. Impression: - Perianal skin tags found on perianal exam. - Small internal hemorrhoids - One 10 mm polyp in the mid descending colon, removed with a cold snare. Resected and retrieved. - The colonoscopy was otherwise normal on direct and retroflexion views. Recommendation: - Repeat colonoscopy in 5 years for surveillance. Procedure Code(s): --- Professional --- 14399, Colonoscopy, flexible; with removal of tumor(s), polyp(s), or other lesion(s) by snare technique Diagnosis Code(s): --- Professional --- K64.4, Residual hemorrhoidal skin tags Z86.010, Personal history of colonic polyps K63.5, Polyp of colon CPT copyright 2019 [employer]. All rights reserved. The codes documented in this report are preliminary and upon shoulder pad molder review may be revised to meet current compliance requirements. Bandar Herrera MD Bandar HERRERA MD 08/15/2020 1:47:36 PM Electronically signed by Bandar HERRERA MD Number of Addenda: 0 Note Initiated On: 08/15/2020 1:01 PM Estimated Blood Loss: Estimated blood loss: none.
[2020-08-15 14:15] VITALS: BP 142/75
== END 2020-08-15 14:35 | disposition home or self-care (01) ==
LOC: M OPP 11:44
PROVIDERS: ATTEND Internal Medicine Gastroenterology
DX: Z12.11 Encounter for screening for malignant neoplasm of colon (principal); Z86.010 Personal history of colon polyps; Z80.0 Family history of malignant neoplasm of digestive organs; R12 Heartburn; D12.4 Benign neoplasm of descending colon; K64.4 Residual hemorrhoidal skin tags; K44.9 Diaphragmatic hernia without obstruction or gangrene; Z98.84 Bariatric surgery status; I10 Essential (primary) hypertension; M19.90 Unspecified osteoarthritis, unspecified site; F32.9 Major depressive disorder, single episode, unspecified; G47.30 Sleep apnea, unspecified; I89.0 Lymphedema, not elsewhere classified; D64.9 Anemia, unspecified; Z87.891 Personal history of nicotine dependence; Z96.653 Presence of artificial knee joint, bilateral; Z79.899 Other long term (current) drug therapy; Z80.1 Family history of malignant neoplasm of trachea, bronchus and lung
CPT/HCPCS: 43235; 45385; 88305; J3010

== ENCOUNTER → 2021-12-07 | Outpatient (CLI) | payer BC ==
[~2021-12-07] MED LIST changes: +COLA100C5 PO; -LIDOCAINE 2% 100MG/5ML SDV (FOR ANES.) As Ordered ONE; -NS 1,000 ML IV ONE; +VENL37TA; -fentaNYL 100 MCG/2 ML INJECTION (J3010) As Ordered ONE; -propofoL 200 MG/20 ML VIAL As Ordered ONE
== END ==
LOC: M LABSMTC 11:19
PROVIDERS: ATTEND Anesthesiology
DX: Z01.818 Encounter for other preprocedural examination (principal); Z11.52 Encounter for screening for COVID-19

== ENCOUNTER → 2022-01-02 | Outpatient (CLI) | payer BC | LOC: M EKG 15:03 | PROVIDERS: ATTEND Anesthesiology | DX: Z01.810 Encounter for preprocedural cardiovascular examination (principal); K60.1 Chronic anal fissure ==

== ENCOUNTER 2022-01-12 08:45 | Day surgery (SDC) | payer BC ==
[~2022-01-12] VITALS: Ht 167.6 cm; Wt 100.7 kg
[~2022-01-12 08:45] MED LIST changes: +NS 1,000 ML IV ONE
[2022-01-12] MEDS ORDERED: LR 1,000 ML IV SCH (09:10)
[2022-01-12] MEDS ORDERED: MIDAZOLAM INJ 2MG/2ML VIAL (J2250 PER 1MG) As Ordered ONE (09:49)
[2022-01-12] MEDS ORDERED: propofoL 200 MG/20 ML VIAL As Ordered ONE (09:49)
[2022-01-12] MEDS ORDERED: fentaNYL 100 MCG/2 ML INJECTION As Ordered ONE (09:49)
[2022-01-12] MEDS ORDERED: LIDOCAINE 2% 100MG/5ML SDV (FOR ANES.) As Ordered ONE (09:49)
[2022-01-12] MEDS ORDERED: ONDANSETRON 4MG 2ML VIAL As Ordered ONE (09:49)
[2022-01-12] MEDS ORDERED: CHLOROPROCAINE PRES. FREE 2% 20ML VIAL As Ordered ONE (10:21)
[2022-01-12] MEDS ORDERED: BUPIVACAINE LIPOSOME/PF 1.3% 20ML VIAL (13.3MG/ML)(EXPAREL) As Ordered ONE (10:56)
[2022-01-12] MEDS ORDERED: BUPIVACAINE HCL 0.25% 30ML VIAL As Ordered ONE (10:56)
[2022-01-12] MEDS ORDERED: ACETAMINOPHEN 1000MG 100ML IV BTL (OFIRMEV) (J0131 PER 10MG) As Ordered ONE (10:57)
[2022-01-12 13:40] VITALS: BP 150/73
== END 2022-01-12 13:45 | disposition home or self-care (01) ==
LOC: M SDC 08:45
PROVIDERS: ATTEND Surgery
DX: K60.1 Chronic anal fissure (principal); I10 Essential (primary) hypertension; F41.9 Anxiety disorder, unspecified; F32.A Depression, unspecified; Z98.84 Bariatric surgery status
CPT/HCPCS: 46200; C9290; J0131; J2250; J2400; J2405; J3010